=== PATIENT | female | born 1930 | race Caucasian/White ===

== ENCOUNTER 2017-08-11 15:18 | Inpatient (IN) | payer MEDICARE ==
[~2017-08-11] VITALS: Ht 165.1 cm; Wt 86.4 kg
[~2017-08-11 15:18] MED LIST: ASPI81TA23 PO; CENTTAB; COLA100C3 PO; GLIP1TAB60 PO; METF500T PO; VENTAER INH
--- NOTE | 2017-08-11 15:39 | PD ---
HPI Chief Complaint: respiratory symptoms Time Seen by Provider: 15:39 Travel History International Travel<30 days: No Contact w/Intl Traveler<30days: No History of Present Illness HPI 87 YO F with PMH of COPD, DMT2, chronic wounds presents to the ED via EMS for evaluation of shortness of breath. Gradual onset since this morning. Patient states that she was ordered to wear O2 at night but is noncompliant. She endorses chronic, nonproductive cough. She endorses low appetite since this morning. She denies fever, chills, chest pain, nausea, vomiting, dysuria. The patient is bedbound, cared for at home by her daughter. The daughter states that the patient is prescribed a rescue inhaler but does not use albuterol treatments at home. Patient's daughter uses a nebulizer and administered 2 treatments to her mom last night. Followed by Dr. Luque, no instrument calibrator. She was administered IV Solu-Medrol and albuterol treatments in route. PFSH Past Medical History Congestive Heart Failure: Yes COPD: Yes Diabetes: Yes Diminished Hearing: Yes ([place]) Hypertension: Yes Immunizations Current: Yes Past Surgical History Cholecystectomy: Yes Hysterectomy: Yes Social History Alcohol Use: No Tobacco Use: Yes (2 PPD) Substance Use: No Allergies-Medications (Allergen,Severity, Reaction): Coded Allergies: amoxicillin (Unverified Allergy, Unknown, 08/11/17) levofloxacin (Unverified Allergy, Unknown, 08/11/17) penicillin G (Unverified Allergy, Unknown, 08/11/17) Reported Meds & Prescriptions Reported Meds & Active Scripts Active Reported Donepezil 5 Mg Tab 5 Mg PO HS Plavix (Clopidogrel Bisulfate) 75 Mg Tab 75 Mg PO DAILY Ventolin Hfa 18 GM Inh (Albuterol Sulfate) 90 Mcg/Act Aer 2 Puff INH Q4-6H PRN Aspirin EC (Aspirin) 81 Mg Tabdr 81 Mg PO DAILY Glipizide ER (Glipizide) 2.5 Mg Nayeli 2.5 Mg PO BID Take with breakfast or first main meal of the day Review of Systems Except as stated in HPI: all other systems reviewed are Neg Physical Exam Narrative GENERAL: Well-nourished, well-developed white female in no acute distress. SKIN: Focused skin assessment warm/dry. HEAD: Normocephalic. EYES: No scleral icterus. No injection or drainage. NECK: Supple, trachea midline. No JVD or lymphadenopathy. CARDIOVASCULAR: Regular rate and rhythm without murmurs, gallops, or rubs. RESPIRATORY: Breath sounds equal bilaterally. Mild end expiratory wheezing in the bilateral lung weston. No accessory muscle use. GASTROINTESTINAL: Abdomen soft, non-tender, nondistended. Active bowel sounds. RECTAL EXAM: No masses or tenderness, stool is brown. Guaiac positive. MUSCULOSKELETAL: No cyanosis, or edema. Muscle wasting in the lower extremities. BACK: Nontender without obvious deformity. No CVA tenderness. Data Data Last Documented VS Vital Signs Date Time Temp Pulse Resp B/P (MAP) Pulse Ox O2 Delivery O2 Flow Rate FiO2 08/11/17 15:57 96 Nasal Cannula 3.00 08/11/17 15:43 98.0 107 21 152/67 (95) Orders Orders Complete Blood Count With Diff (08/11/17 15:54) Comprehensive Metabolic Panel (08/11/17 15:54) B-Type Natriuretic Peptide (08/11/17 15:54) Act Partial Throm Time (Ptt) (08/11/17 15:54) Prothrombin Time / Inr (Pt) (08/11/17 15:54) Urinalysis - C+S If Indicated (08/11/17 15:54) Iv Access Insert/Monitor (08/11/17 15:54) Ecg Monitoring (08/11/17 15:54) Oximetry (08/11/17 15:54) Oxygen Administration (08/11/17 15:54) Chest, Single Ap (08/11/17 15:54) Sodium Chloride 0.9% Flush (Ns Flush) (08/11/17 16:00) Albuterol-Ipratropium Neb (Duoneb Neb) (08/11/17 16:00) Lidocaine 2% Jelly (Xylocaine 2% Jelly) (08/11/17 17:30) Type And Screen (08/11/17 17:25) Red Blood Cells (Rbc) (08/11/17 17:25) Sodium Chlor 0.9% 250 Ml Inj (Ns 250 Ml (08/11/17 17:30) Furosemide Inj (Lasix Inj) (08/11/17 17:45) Blood Product Administration (08/11/17 17:36) Sodium Chlor 0.9% 250 Ml Inj (Ns 250 Ml (08/11/17 17:45) Diphenhydramine (Benadryl) (08/11/17 17:45) Acetaminophen (Tylenol) (08/11/17 17:45) Urinary Catheter Insert/Apply (08/11/17 17:47) Admit Order (Ed Use Only) (08/11/17 17:51) Consult Gastroenterology (08/11/17 ) Labs Laboratory Tests Test 08/11/17 15:56 White Blood Count 12.8 TH/MM3 Red Blood Count 4.12 MIL/MM3 Hemoglobin 6.9 GM/DL Hematocrit 25.3 % Mean Corpuscular Volume 61.5 FL Mean Corpuscular Hemoglobin 16.7 PG Mean Corpuscular Hemoglobin Concent 27.1 % Red Cell Distribution Width 22.5 % Platelet Count 287 TH/MM3 Mean Platelet Volume 8.3 FL Neutrophils (%) (Auto) 77.4 % Lymphocytes (%) (Auto) 16.3 % Monocytes (%) (Auto) 5.1 % Eosinophils (%) (Auto) 0.7 % Basophils (%) (Auto) 0.5 % Neutrophils # (Auto) 9.9 TH/MM3 Lymphocytes # (Auto) 2.1 TH/MM3 Monocytes # (Auto) 0.7 TH/MM3 Eosinophils # (Auto) 0.1 TH/MM3 Basophils # (Auto) 0.1 TH/MM3 CBC Comment AUTO DIFF Differential Comment AUTO DIFF CONFIRMED Platelet Estimate NORMAL Platelet Morphology Comment NORMAL Ovalocytes 1+ Stomatocytes 1+ Prothrombin Time 11.4 SEC Prothromb Time International Ratio 1.1 RATIO Activated Partial Thromboplast Time 23.5 SEC Blood Urea Nitrogen 20 MG/DL Creatinine 0.72 MG/DL Random Glucose 151 MG/DL Total Protein 6.9 GM/DL Albumin 2.9 GM/DL Calcium Level 8.2 MG/DL Alkaline Phosphatase 126 U/L Aspartate Amino Transf (AST/SGOT) 15 U/L Alanine Aminotransferase (ALT/SGPT) 15 U/L Total Bilirubin 0.6 MG/DL Sodium Level 144 MEQ/L Potassium Level 3.8 MEQ/L Chloride Level 107 MEQ/L Carbon Dioxide Level 30.2 MEQ/L Anion Gap 7 MEQ/L Estimat Glomerular Filtration Rate 77 ML/MIN B-Type Natriuretic Peptide 308 PG/ML MDM Medical Decision Making Medical Screen Exam Complete: Yes Emergency Medical Condition: Yes Differential Diagnosis COPD exacerbation versus CHF versus PNA versus UTI versus anemia versus metabolic derangement versus other Narrative Course 87 YO F with PMH of COPD, DMT2, chronic wounds presents to the ED via EMS for evaluation of shortness of breath. Gradual onset since this morning. She endorses chronic, nonproductive cough, no worse today. She endorses low appetite since this morning. She denies fever, chills, chest pain, nausea, vomiting, dysuria. The patient is bedbound, cared for at home by her daughter. Followed by Dr. Luque. She was administered IV Solu-Medrol and albuterol treatments in route. Vitals reviewed. O2 sats 89 through 91 on room air. 2 L O2 nasal cannula applied. O2 sats improved to 95% and above. Heart rate 107. Physical exam reveals a nontoxic-appearing white female in no acute distress. Mild index were toward wheezing in the bilateral lung weston. Abdomen soft and nontender. Stool is brown, guaiac positive. Muscle wasting of the lower extremities. IV was established. CBC: WBC 12.8 with a left shift. Hemoglobin 6.9. Hematocrit 25.3. MCV 61.5. Coags: INR 1.1 CMP: BUN 20, creatinine 0.72. Calcium 8.2. BNP 308. CXR: Ulnar edema per radiology read. UA: Unable to obtain secondary to patient's body habitus and pain level. Topical lidocaine ordered, will attempt to insert Motta catheter. 2 units PRBCs ordered, will be administered pending type and screen. Discussed the results of the workup with the patient and her family. Patient had a colonoscopy approximately 3 years ago, unknown provider. The patient is agreeable to admission. Consult placed with gastroenterology. [facility] is admitting for Dr. Luque today. I spoke with Dr. Palomino who agrees to accept the patient to the medicine service. Please see medicine notes for disposition. [facility]pt Point of Care Internal Pos. & Neg. Controls: Passed Fecal Specimen Occult Blood: Positive Amanda Madrigal Aug 11, 2017 15:39
[2017-08-11 15:43] VITALS: BP 152/67; PULSE 107; RESP 21; TEMP 98; O2SAT 93
[2017-08-11] MEDS ORDERED: PLAV75TA29 PO (15:52)
[2017-08-11] MEDS ORDERED: DONE5TAB7 PO (15:52)
[2017-08-11] MEDS ORDERED: SODIUM CHLORIDE 0.9% FLUSH 10 ML FLUSH IVF PRN (16:00)
[2017-08-11] MEDS: RESP: ALBUTEROL 2.5 MG/IPRATROPIUM 0.5 MG NEB (SCH) INH (16:07)
--- NOTE | 2017-08-11 16:14 | RADRPT ---
EXAM DATE/TIME: 08/11/2017 16:08 [facility] COMPARISON: CHEST SINGLE AP, July 10, 2014, 14:00. INDICATIONS : Shortness of breath for 3 days. MEDICAL HISTORY : Chronic obstructive pulmonary disease. SURGICAL HISTORY : None. ENCOUNTER: Initial ACUITY: 3 days PAIN SCORE: 0/10 LOCATION: Bilateral chest FINDINGS: A single view of the chest demonstrates increased prominence of the interstitial markings bilaterally to just above edema. There is blunting of the costophrenic angle suggestive of small effusions. The heart size is enlarged. The bony structures are grossly intact and stable.. CONCLUSION: Findings suggestive of pulmonary edema. Mor Poole MD on August 11, 2017 at 16:12 Board Certified Radiologist. This report was verified electronically.
[2017-08-11 17:05] LABS: AUTOMATED NEUTROPHIL # 9.9 TH/MM3 (1.8-7.7); BASOPHIL # 0.1 TH/MM3 (0-0.2); BASOPHIL % 0.5 % (0.0-2.0); EOSINOPHIL # 0.1 TH/MM3 (0-0.4); EOSINOPHIL % 0.7 % (0.0-4.0); HEMATOCRIT 25.3 % (35.0-46.0); LYMPH % 16.3 % (9.0-44.0); LYMPHOCYTE # 2.1 TH/MM3 (1.0-4.8); MEAN CELL VOLUME 61.5 FL (80.0-100.0); MEAN CORPUSCULAR HEMOGLOBIN 16.7 PG (27.0-34.0); MONO % 5.1 % (0.0-8.0); NEUT % 77.4 % (16.0-70.0); PLATELET COUNT 287 TH/MM3 (150-450); RED BLOOD COUNT 4.12 MIL/MM3 (4.00-5.30); RED CELL DISTRIBUTION WIDTH 22.5 % (11.6-17.2); WHITE BLOOD COUNT 12.8 TH/MM3 (4.0-11.0)
[2017-08-11 17:06] LABS: HEMO FLAGS AUTO DIFF; MEAN CORPUSCULAR HGB CONC 27.1 % (32.0-36.0)
[2017-08-11 17:07] LABS: APTT (PATIENT) 23.5 SEC (24.3-30.1); INTERNATIONAL NORMALIZED RATIO 1.1 RATIO; PROTHROMBIN TIME - PATIENT 11.4 SEC (9.8-11.6)
[2017-08-11 17:19] LABS: ALT (GPT) 15 U/L (10-53); ANION GAP 7 MEQ/L (5-15); AST (GOT) 15 U/L (15-37); BICARBONATE 30.2 MEQ/L (21.0-32.0); BLOOD UREA NITROGEN 20 MG/DL (7-18); CHLORIDE 107 MEQ/L (98-107); GLOMERULAR FILTRATION RATE 77 ML/MIN (>89); POTASSIUM 3.8 MEQ/L (3.5-5.1); SODIUM (NA) 144 MEQ/L (136-145)
[2017-08-11 17:22] LABS: ALKALINE PHOSPHATASE 126 U/L (45-117); TOTAL BILIRUBIN ADULT 0.6 MG/DL (0.2-1.0)
[2017-08-11] MEDS ORDERED: SODIUM CHLOR 0.9% 250 ML INJ 250 ML IV ONE ×2 (17:30→17:45)
[2017-08-11] MEDS ORDERED: LIDOCAINE 2% JELLY 30 ML TUBE TOPICAL ONE (17:30)
[2017-08-11 17:40] LABS: OVALOCYTES 1+ (NORMAL); PLATELET ESTIMATE SMEAR NORMAL (NORMAL); PLATELET MORPHOLOGY NORMAL (NORMAL); SCAN/DIFF AUTO DIFF CONFIRMED; STOMATOCYTES 1+ (NORMAL)
[2017-08-11] MEDS ORDERED: diphenhydrAMINE HCL 25 MG CAP PO ONE (17:45)
[2017-08-11] MEDS ORDERED: FUROSEMIDE 40 MG/4 ML VIAL IV PUSH ONE (17:45)
[2017-08-11] MEDS ORDERED: ACETAMINOPHEN 325 MG TAB PO ONE (17:45)
[2017-08-11] MEDS ORDERED: MAGNESIUM HYDROXIDE SUSP 30 ML CUP PO PRN (19:15)
[2017-08-11] MEDS ORDERED: GLUCAGON 1 MG/ML VIAL OTHER PRN (19:15)
[2017-08-11] MEDS ORDERED: RESP: ALBUTEROL 2.5 MG/IPRATROPIUM 0.5 MG NEB (PRN) NEB (19:15)
[2017-08-11] MEDS ORDERED: BISACODYL 10 MG SUPP RECTAL PRN (19:15)
[2017-08-11] MEDS ORDERED: DEXTROSE 50% IN WATER 50 ML VIAL(D50) IV PUSH PRN (19:15)
[2017-08-11] MEDS ORDERED: SENNOSIDES 8.6 MG TAB PO PRN (19:15)
[2017-08-11] MEDS ORDERED: NALOXONE HCL 0.4 MG/ML AMP IV PUSH PRN (19:15)
[2017-08-11] MEDS ORDERED: LACTULOSE SYRUP 20 GM/30 ML CUP PO PRN (19:15)
[2017-08-11] MEDS ORDERED: ONDANSETRON HCL 4 MG/2 ML VIAL IVP PRN (19:15)
[2017-08-11] MEDS ORDERED: ACETAMINOPHEN 325 MG TAB PO PRN (19:15)
[2017-08-11] MEDS ORDERED: SODIUM CHLORIDE 0.9% FLUSH 10 ML FLUSH IV FLUSH PRN (19:15)
[2017-08-11 19:31] VITALS: O2SAT 94
[2017-08-11 20:06] VITALS: BP 145/89; PULSE 90; RESP 20; O2SAT 94; O2SAT 95
[2017-08-11 20:50] VITALS: BP 161/72; PULSE 106; RESP 22; TEMP 96.1; O2SAT 94
[2017-08-11] MEDS: DOCUSATE SODIUM 50 MG/SENNA 8.6 MG TAB PO SCH (21:00)
--- NOTE | 2017-08-11 21:57 | HHI.HP ---
HPI [facility] Dwight Luque MD Admission Diagnosis GI bleed, anemia, hypoxia Diagnoses: Travel History International Travel<30 Days: No Contact w/Intl Traveler <30 Da: No Traveled to Known Affected Are: No History of Present Illness 87-year-old female with a past medical history significant for COPD (not on home oxygen), h/o CVA, type 2 diabetes mellitus, dementia and chronic wounds for which she sees wound care is brought to the emergency department by EMS for shortness of breath. The patient reports her shortness of breath started this morning and has been gradually increasing. She has a cough which is unchanged from her chronic cough, nonproductive. She denies subjective fever/chills. Denies chest pain, nausea/vomiting. Patient was found to be severely anemic with an H&H of 6.9/25.3. Chest x-ray showed pulmonary edema. Afebrile, tachycardic with a pulse of 107, respiratory rate 22, blood pressure 161/72 oxygen saturation 94% on 3 L nasal cannula. Review of Systems Denies fever or chills Denies blurry vision, otorrhea, rhinorrhea Denies sore throat, positive chronic non-productive cough No chest pain, palpitations, positive shortness of breath No abdominal pain Denies constipation/diarrhea/nausea/vomiting Denies muscle pain/weakness No rashes Past Family Social History Past Medical History COPD, not on home oxygen Type 2 diabetes mellitus Pressure ulcer left heel History of CVA Dementia Past Surgical History Bilateral foot surgery Bilateral hip replacement Cholecystectomy Reported Medications Reported Meds & Active Scripts Active Reported Donepezil 5 Mg Tab 5 Mg PO HS Plavix (Clopidogrel Bisulfate) 75 Mg Tab 75 Mg PO DAILY Ventolin Hfa 18 GM Inh (Albuterol Sulfate) 90 Mcg/Act Aer 2 Puff INH Q4-6H PRN Aspirin EC (Aspirin) 81 Mg Tabdr 81 Mg PO DAILY Glipizide ER (Glipizide) 2.5 Mg Nayeli 2.5 Mg PO BID Take with breakfast or first main meal of the day Allergies: Coded Allergies: amoxicillin (Unverified Allergy, Unknown, 12/9/17) levofloxacin (Unverified Allergy, Unknown, 08/11/17) penicillin G (Unverified Allergy, Unknown, 08/11/17) Family History Mother with diabetes mellitus Social History Quit smoking 1-1/2 years ago, cannot tell me how long she smoked. Denies alcohol, illicit drugs. Physical Exam Vital Signs Vital Signs Date Time Temp Pulse Resp B/P (MAP) Pulse Ox O2 Delivery O2 Flow Rate FiO2 08/11/17 20:50 96.1 106 22 161/72 (101) 94 08/11/17 20:30 08/11/17 20:06 90 20 145/89 (107) 95 Nasal Cannula 3.00 08/11/17 19:31 94 Nasal Cannula 3.00 08/11/17 15:57 96 Nasal Cannula 3.00 08/11/17 15:43 98.0 107 21 152/67 (95) 93 Nasal Cannula 3.00 Physical Exam GENERAL: female lying in bed SKIN: Pale. No rashes, ecchymoses or lesions. Cool and dry. Pressure ulcer left heel with dressing intact. HEAD: Atraumatic. Normocephalic. No temporal or scalp tenderness. EYES: Pupils equal round and reactive. Extraocular motions intact. No scleral icterus. No injection or drainage. ENT: Nose without bleeding, purulent drainage or septal hematoma. Throat without erythema, tonsillar hypertrophy or exudate. Uvula midline. Airway patent. NECK: Trachea midline. No JVD or lymphadenopathy. Supple, nontender, no meningeal signs. CARDIOVASCULAR: Regular rate and rhythm without murmurs, gallops, or rubs. RESPIRATORY: Bilateral expiratory wheezes throughout. No rales/rhonchi. GASTROINTESTINAL: Abdomen soft, non-tender, nondistended. No hepato-splenomegaly , or palpable masses. No guarding. MUSCULOSKELETAL: Extremities without clubbing, cyanosis, or edema. No joint tenderness, effusion, or edema noted. No calf tenderness. NEUROLOGICAL: Awake and alert. Cranial nerves II through XII intact. Bilateral lower extremity residual weakness secondary to CVA. Normal speech. Alert and oriented to person, place. Thinks it is 2006. Laboratory Laboratory Tests Test 08/11/17 15:56 White Blood Count 12.8 Red Blood Count 4.12 Hemoglobin 6.9 Hematocrit 25.3 Mean Corpuscular Volume 61.5 Mean Corpuscular Hemoglobin 16.7 Mean Corpuscular Hemoglobin Concent 27.1 Red Cell Distribution Width 22.5 Platelet Count 287 Mean Platelet Volume 8.3 Neutrophils (%) (Auto) 77.4 Lymphocytes (%) (Auto) 16.3 Monocytes (%) (Auto) 5.1 Eosinophils (%) (Auto) 0.7 Basophils (%) (Auto) 0.5 Neutrophils # (Auto) 9.9 Lymphocytes # (Auto) 2.1 Monocytes # (Auto) 0.7 Eosinophils # (Auto) 0.1 Basophils # (Auto) 0.1 CBC Comment AUTO DIFF Differential Comment AUTO DIFF CONFIRMED Platelet Estimate NORMAL Platelet Morphology Comment NORMAL Ovalocytes 1+ Stomatocytes 1+ Prothrombin Time 11.4 Prothromb Time International Ratio 1.1 Activated Partial Thromboplast Time 23.5 Blood Urea Nitrogen 20 Creatinine 0.72 Random Glucose 151 Total Protein 6.9 Albumin 2.9 Calcium Level 8.2 Alkaline Phosphatase 126 Aspartate Amino Transf (AST/SGOT) 15 Alanine Aminotransferase (ALT/SGPT) 15 Total Bilirubin 0.6 Sodium Level 144 Potassium Level 3.8 Chloride Level 107 Carbon Dioxide Level 30.2 Anion Gap 7 Estimat Glomerular Filtration Rate 77 B-Type Natriuretic Peptide 308 Result Diagram: 08/11/17 1556 08/11/17 155 Caprini VTE Risk Assessment Caprini VTE Risk Assessment: Mod/High Risk (score >= 2) Caprini Risk Assessment Model Point Value = 1 Point Value = 2 Point Value = 3 Point Value = 5 Age 41-60 Minor surgery BMI > 25 kg/m2 Swollen legs Varicose veins or History of unexplained or recurrent spontaneous Oral contraceptives or hormone replacement Sepsis (< 1 month) Serious lung disease, including pneumonia (< 1 month) Abnormal pulmonary function Acute myocardial infarction Congestive heart failure (< 1 month) History of inflammatory bowel disease Medical patient at bed rest Age 61-74 Arthroscopic surgery Major open surgery (> 45 min) Laparoscopic surgery (> 45 min) Malignancy Confined to bed (> 72 hours) Immobilizing plaster cast Central venous access Age >= 75 History of VTE Family history of VTE Factor V Leiden Prothrombin [id number] Lupus anticoagulant Anticardiolipin antibodies Elevated serum homocysteine Heparin-induced thrombocytopenia Other congenital or acquired thrombophilia Stroke (< 1 month) Elective arthroplasty Hip, pelvis, or leg fracture Acute spinal cord injury (< 1 month) Prophylaxis Regimen Total Risk Factor Score Risk Level Prophylaxis Regimen 0-1 Low Early ambulation 2 Moderate Order ONE of the following: *Sequential Compression Device (SCD) *Heparin 5000 units SQ BID 3-4 Higher Order ONE of the following medications: *Heparin 5000 units SQ TID *Enoxaparin/Lovenox 40 mg SQ daily (WT < 150 kg, CrCl > 30 mL/min) *Enoxaparin/Lovenox 30 mg SQ daily (WT < 150 kg, CrCl > 10-29 mL/min) *Enoxaparin/Lovenox 30 mg SQ BID (WT < 150 kg, CrCl > 30 mL/min) AND/OR *Sequential Compression Device (SCD) 5 or more Highest Order ONE of the following medications: *Heparin 5000 units SQ TID (Preferred with Epidurals) *Enoxaparin/Lovenox 40 mg SQ daily (WT < 150 kg, CrCl > 30 mL/min) *Enoxaparin/Lovenox 30 mg SQ daily (WT < 150 kg, CrCl > 10-29 mL/min) *Enoxaparin/Lovenox 30 mg SQ BID (WT < 150 kg, CrCl > 30 mL/min) AND *Sequential Compression Device (SCD) Assessment and Plan Assessment and Plan Assessment/plan: 1. Severe, symptomatic anemia/possible GI bleed H&H 6.9/25.3 Hemoccult-positive in the ED Transfuse 2 units PRBCs Gastroenterology consulted, appreciate assistance IV Protonix Follow CBC 2. COPD exacerbation/pulmonary edema Patient with new oxygen requirement and bilateral wheezes on exam Chest x-ray shows pulmonary edema, images reviewed by me Continue IV Lasix IV steroids Duo nebs 3. History of CVA Holding home aspirin/Plavix 4. Type 2 diabetes mellitus Holding home glipizide SSI Monitor blood sugars 5. Chronic pressure ulcer Patient sees wound care as an outpatient although her compliance with appointments as intermittent wound care consulted, appreciate assistance 6. Dementia Continue home Aricept FEN Regular diet Electrolytes: Monitor and replete when necessary Holding pharmacologic anticoagulation out of concern for GI bleed Case discussed with the ER physician at length Physician Certification 2 Midnight Certification Type: Admission for Inpatient Services Order for Inpatient Services The services are ordered in accordance with Medicare regulations or non- Medicare payer requirements, as applicable. In the case of services not specified as inpatient-only, they are appropriately provided as inpatient services in accordance with the 2-midnight benchmark. Estimated LOS (days): 2 2 days is the estimated time the patient will need to remain in the hospital, assuming treatment plan goals are met and no additional complications. Post-Hospital Plan: Not yet determined Hannah Baum MD Aug 11, 2017 21:56
[2017-08-11] MEDS: INSULIN ASPART SUPPLEMENTAL SCALE SQ SCH (23:34)
[2017-08-11] MEDS: PANTOPRAZOLE SODIUM 40 MG VIAL IV PUSH SCH (23:35)
[2017-08-12] VITALS (9 sets, daily range): BP systolic 115–174; BP diastolic 57–93; PULSE 85–96; RESP 17–24; TEMP 96.7–98.1; O2SAT 94–97
[2017-08-12] MEDS: SODIUM CHLORIDE 0.9% FLUSH 10 ML FLUSH IV FLUSH SCH ×3 (01:20→19:39)
[2017-08-12] MEDS: DONEPEZIL HCL 5 MG TAB PO SCH ×2 (01:20→19:38)
[2017-08-12] MEDS ORDERED: AZITHROMYCIN 250 MG TAB PO ONE (08:30)
[2017-08-12] MEDS ORDERED: RESP: ALBUTEROL 2.5 MG/3 ML NEB (PRN) NEB (08:30)
[2017-08-12] MEDS: DOCUSATE SODIUM 50 MG/SENNA 8.6 MG TAB PO SCH ×2 (08:41→19:38)
[2017-08-12] MEDS: methylPREDNISolone SOD SUCC 40 MG/1 ML VIAL IV PUSH SCH ×2 (08:41→19:38)
[2017-08-12] MEDS: FUROSEMIDE 20 MG/2 ML VIAL IV PUSH SCH ×2 (08:41→17:37)
[2017-08-12] MEDS: INSULIN ASPART SUPPLEMENTAL SCALE SQ SCH ×4 (08:42→19:38)
[2017-08-12] MEDS ORDERED: RESP: ALBUTEROL 2.5 MG/IPRATROPIUM 0.5 MG NEB (PRN) NEB (08:45)
--- NOTE | 2017-08-12 11:42 | HHI.PR ---
Subjective Remarks Follow-up anemia and pulmonary edema. Patient denies bleeding and shortness of breath. Per family, she is a DO NOT INTUBATE. Discussed with RN Objective Vitals Vital Signs Date Time Temp Pulse Resp B/P (MAP) Pulse Ox O2 Delivery O2 Flow Rate FiO2 08/12/17 08:00 97.2 85 18 141/85 (103) 97 08/12/17 04:21 97.9 87 20 143/74 97 08/12/17 04:03 96.7 89 20 169/73 96 08/12/17 01:12 97.0 95 20 128/64 96 08/12/17 00:00 97.2 96 24 115/57 (76) 94 08/11/17 20:50 96.1 106 22 161/72 (101) 94 08/11/17 20:30 08/11/17 20:06 90 20 145/89 (107) 95 Nasal Cannula 3.00 08/11/17 19:31 94 Nasal Cannula 3.00 08/11/17 15:57 96 Nasal Cannula 3.00 08/11/17 15:43 98.0 107 21 152/67 (95) 93 Nasal Cannula 3.00 I/O 08/11/17 08/11/17 08/11/17 08/12/17 08/12/17 08/12/17 07:00 15:00 23:00 07:00 15:00 23:00 Intake Total 920 ml Balance 920 ml Intake Oral 480 ml Packed Cells 400 ml Blood Product IV Normal Saline Flush 40 ml # Voids 2 # Bowel Movements 0 Result Diagram: 08/11/17 1556 08/11/17 1556 Imaging Last Impressions Chest X-Ray 08/11/17 1554 Signed Impressions: Service Date/Time: Friday, August 11, 2017 16:08 - CONCLUSION: Findings suggestive of pulmonary edema. Mor Poole MD Objective Remarks GENERAL: female lying in bed SKIN: Pale. No rashes, ecchymoses or lesions. Cool and dry. Pressure ulcer left heel with dressing intact. CARDIOVASCULAR: Regular rate and rhythm without murmurs, gallops, or rubs. RESPIRATORY: Decreased breath sounds. No rales/rhonchi. GASTROINTESTINAL: Abdomen soft, non-tender, nondistended. No guarding. MUSCULOSKELETAL: Extremities without clubbing, cyanosis, or edema. No joint tenderness, effusion, or edema noted. No calf tenderness. NEUROLOGICAL: Awake and alert. Cranial nerves II through XII intact. Bilateral lower extremity residual weakness secondary to CVA. Normal speech. A/P Problem List: (1) Anemia ICD Code: D64.9 - Anemia, unspecified Assessment and Plan 1. Severe, symptomatic anemia secondary to acute blood loss from GI bleed Hemoccult-positive in the ED Transfuse 2 units PRBCs Gastroenterology consulted, appreciate assistance IV Protonix Follow CBC 2. COPD exacerbation/pulmonary edema Patient with new oxygen requirement and bilateral wheezes on exam improved today Chest x-ray shows pulmonary edema, images reviewed by me Continue IV Lasix check echocardiogram IV steroids consider switching to by mouth in the morning. Start Zithromax Duo nebs 3. History of CVA Holding home aspirin/Plavix 4. Type 2 diabetes mellitus Holding home glipizide SSI Monitor blood sugars 5. Chronic pressure ulcer Patient sees wound care as an outpatient although her compliance with appointments as intermittent wound care consulted, appreciate assistance 6. Dementia Continue home Aricept FEN Regular diet Electrolytes: Monitor and replete when necessary Holding pharmacologic anticoagulation out of concern for GI bleed Discharge Planning Not ready for discharge for endoscopy tomorrow Virgilio Fonseca MD Aug 12, 2017 11:42
--- NOTE | 2017-08-12 12:47 | PD.CONS ---
HPI History of Present Illness This is a 87 year old female who presented to the ED by EMS with c/o shortness of breath. Past medical history significant for COPD, CVA, type 2 diabetes, dementia, and chronic wounds. In the ED patient was noted to be anemic, HH 6.9/ 25.3 (08/11) with Hemoccult positive stools. She is s/p 2 transfusions of PRBC on 08/12. Patient reports she had a colonoscopy "a long time ago" and she is unaware of the results. Denies abdominal pain. Denies nausea or vomiting. (Marj Bolton) PFSH Past Medical History COPD Type 2 diabetes mellitus Pressure ulcer left heel History of CVA Dementia Past Surgical History Bilateral foot surgery Bilateral hip replacement Cholecystectomy (Marj Bolton) Coded Allergies: amoxicillin (Unverified Allergy, Unknown, 08/11/17) levofloxacin (Unverified Allergy, Unknown, 08/11/17) penicillin G (Unverified Allergy, Unknown, 08/11/17) Medications Current Medications Medications (Trade) Dose Ordered Sig/Yue Route PRN Reason Start Time Stop Time Status Last Admin Dose Admin Sodium Chloride (NS Flush) 2 ml UNSCH PRN IV FLUSH FLUSH AFTER USING IV ACCESS 08/11/17 19:15 Sodium Chloride (NS Flush) 2 ml BID IV FLUSH 08/11/17 21:00 08/12/17 08:42 Acetaminophen (Tylenol) 650 mg Q4H PRN PO TEMP > 100.4 08/11/17 19:15 Ondansetron HCl (Zofran Inj) 4 mg Q6H PRN IVP NAUSEA OR VOMITING 08/11/17 19:15 Naloxone HCl (Narcan Inj) 0.4 mg UNSCH PRN IV PUSH SEE LABEL COMMENTS 08/11/17 19:15 Senna/Docusate Sodium (Susan-Colace) 1 tab BID PO 08/11/17 21:00 08/12/17 08:41 Magnesium Hydroxide (Milk Of Magnesia Liq) 30 ml Q12H PRN PO Mild constipation 08/11/17 19:15 Sennosides (Senokot) 17.2 mg Q12H PRN PO Moderate constipation 08/11/17 19:15 Bisacodyl (Dulcolax Supp) 10 mg DAILY PRN RECTAL SEVERE CONSITIPATION 08/11/17 19:15 Lactulose (Lactulose Liq) 30 ml DAILY PRN PO SEVERE CONSITIPATION 08/11/17 19:15 Donepezil HCl (Aricept) 5 mg HS PO 08/11/17 21:00 08/12/17 01:20 Dextrose (D50w (Vial) Inj) 50 ml UNSCH PRN IV PUSH HYPOGLYCEMIA-SEE COMMENTS 08/11/17 19:15 Glucagon (Glucagon Inj) 1 mg UNSCH PRN OTHER HYPOGLYCEMIA-SEE COMMENTS 08/11/17 19:15 Insulin Aspart (NovoLOG SUPPLEMENTAL SCALE) 1 ACHS SLIDING SCALE SQ 08/11/17 21:00 08/12/17 08:42 Methylprednisolone Sodium Succinate (SoluMEDROL INJ) 40 mg Q12HR IV PUSH 08/12/17 09:00 08/12/17 08:41 Furosemide (Lasix Inj) 20 mg BID@09,18 IV PUSH 08/12/17 09:00 08/12/17 08:41 Pantoprazole Sodium (Protonix Inj) 40 mg Q24H IV PUSH 08/11/17 22:00 08/11/17 23:35 Albuterol/ Ipratropium (Duoneb Neb) 1 ampule QID NEB PRN NEB SOB/Wheezing 08/12/17 08:45 Albuterol Sulfate (Albuterol Neb) 2.5 mg Q4HR NEB PRN NEB sob 08/12/17 08:30 Azithromycin (Zithromax) 250 mg DAILY PO 08/13/17 09:00 08/17/17 08:59 Family History Mother, diabetes mellitus Social History Tobacco, quit smoking 1-1/2 years ago ETOH, denies Illicit Drugs, denies (Marj Bolton) Review of Systems Constitutional: COMPLAINS OF: Fatigue, DENIES: Diaphoretic episodes, Fever, Weight gain, Weight loss, Chills, Dizziness, Change in appetite, Night Sweats Endocrine: DENIES: Polydipsia, Polyuria Eyes: DENIES: Blurred vision, Photosensitivity, Double Vision Ears, nose, mouth, throat: DENIES: Hearing loss, Vertigo, Oral lesions, Throat pain, Hoarseness Respiratory: COMPLAINS OF: Shortness of breath, DENIES: Cough, Wheezing, Hemoptysis, Sputum production Cardiovascular: DENIES: Chest pain, Palpitations, Syncope, Lower Extremity Edema, Orthopnea, Claudication Gastrointestinal: DENIES: Abdominal pain, Black stools, Bloody stools, Constipation, Diarrhea, Nausea, Vomiting, Difficulty Swallowing, Anorexia, Odynophagia, Swelling of Abdomen, Heartburn, Hematemesis Genitourinary: DENIES: Urinary frequency, Urinary incontinence, Urgency, Hematuria, Dysuria, Nocturia Musculoskeletal: DENIES: Joint pain, Muscle aches, Stiffness, Joint Swelling, Back pain, Neck pain Integumentary: DENIES: Abnormal pigmentation, Nail changes, Pruritus, Rash, Jaundice Hematologic/lymphatic: DENIES: Bruising, Lymphadenopathy Immunologic/allergic: DENIES: Eczema, Urticaria Neurologic: DENIES: Abnormal gait, Headache, Localized weakness, Paresthesias Psychiatric: DENIES: Anxiety, Confusion, Mood changes, Depression, Agitation, Suicidal Ideation (Marj Bolton) GI Exam Vitals I&O Vital Signs Date Time Temp Pulse Resp B/P (MAP) Pulse Ox O2 Delivery O2 Flow Rate FiO2 08/12/17 08:00 97.2 85 18 141/85 (103) 97 08/12/17 04:21 97.9 87 20 143/74 97 08/12/17 04:03 96.7 89 20 169/73 96 08/12/17 01:12 97.0 95 20 128/64 96 08/12/17 00:00 97.2 96 24 115/57 (76) 94 08/11/17 20:50 96.1 106 22 161/72 (101) 94 08/11/17 20:30 08/11/17 20:06 90 20 145/89 (107) 95 Nasal Cannula 3.00 08/11/17 19:31 94 Nasal Cannula 3.00 08/11/17 15:57 96 Nasal Cannula 3.00 08/11/17 15:43 98.0 107 21 152/67 (95) 93 Nasal Cannula 3.00 I/O 08/11/17 08/11/17 08/11/17 08/12/17 08/12/17 08/12/17 07:00 15:00 23:00 07:00 15:00 23:00 Intake Total 920 ml 400 ml Balance 920 ml 400 ml Intake Oral 480 ml Packed Cells 400 ml 400 ml Blood Product IV Normal Saline Flush 40 ml # Voids 2 # Bowel Movements 0 Imaging Last Impressions Chest X-Ray 08/11/17 1554 Signed Impressions: Service Date/Time: Friday, August 11, 2017 16:08 - CONCLUSION: Findings suggestive of pulmonary edema. Mor Poole MD Laboratory Test 08/11/17 15:56 White Blood Count 12.8 TH/MM3 Red Blood Count 4.12 MIL/MM3 Hemoglobin 6.9 GM/DL Hematocrit 25.3 % Mean Corpuscular Volume 61.5 FL Mean Corpuscular Hemoglobin 16.7 PG Mean Corpuscular Hemoglobin Concent 27.1 % Red Cell Distribution Width 22.5 % Platelet Count 287 TH/MM3 Mean Platelet Volume 8.3 FL Neutrophils (%) (Auto) 77.4 % Lymphocytes (%) (Auto) 16.3 % Monocytes (%) (Auto) 5.1 % Eosinophils (%) (Auto) 0.7 % Basophils (%) (Auto) 0.5 % Neutrophils # (Auto) 9.9 TH/MM3 Lymphocytes # (Auto) 2.1 TH/MM3 Monocytes # (Auto) 0.7 TH/MM3 Eosinophils # (Auto) 0.1 TH/MM3 Basophils # (Auto) 0.1 TH/MM3 CBC Comment AUTO DIFF Differential Comment AUTO DIFF CONFIRMED Platelet Estimate NORMAL Platelet Morphology Comment NORMAL Ovalocytes 1+ Stomatocytes 1+ Prothrombin Time 11.4 SEC Prothromb Time International Ratio 1.1 RATIO Activated Partial Thromboplast Time 23.5 SEC Blood Urea Nitrogen 20 MG/DL Creatinine 0.72 MG/DL Random Glucose 151 MG/DL Total Protein 6.9 GM/DL Albumin 2.9 GM/DL Calcium Level 8.2 MG/DL Alkaline Phosphatase 126 U/L Aspartate Amino Transf (AST/SGOT) 15 U/L Alanine Aminotransferase (ALT/SGPT) 15 U/L Total Bilirubin 0.6 MG/DL Sodium Level 144 MEQ/L Potassium Level 3.8 MEQ/L Chloride Level 107 MEQ/L Carbon Dioxide Level 30.2 MEQ/L Anion Gap 7 MEQ/L Estimat Glomerular Filtration Rate 77 ML/MIN B-Type Natriuretic Peptide 308 PG/ML Date/Time Source Procedure Growth Status 08/12/17 11:03 Stool Stool Stool Occult Blood (BOOM) Pending Received Physical Examination HEENT: Normocephalic; atraumatic; no jaundice. NECK: Neck is supple CHEST: Wheezing. CARDIAC: RRR with no murmur gallop or rubs. ABDOMEN: Soft, nondistended, low abdominal area TTP; no hepatosplenomegaly; bowel sounds are present in all four quadrants. EXTREMITIES: No clubbing, cyanosis, or edema. SKIN: L heel pressure ulcer with dressing in place PHLEBOTOMIST ASSOCIATE: Awake, alert and oriented to person and place. (Marj Bolton) Assessment and Plan Plan ASSESSMENT: - Anemia, with Hemoccult positive stools. HH 6.9/25.3 on admission. No recent labs available today to review. She is s/p 2 units of PRBC on 08/12. Last colonoscopy was reported to be "a long time ago," results are unknown. Denies nausea, vomiting, or diarrhea. Denies blood in stool. Lower abdominal are with TTP. - COPD, CXR 08/11/17--Findings suggestive of pulmonary edema - History of CVA. Aspirin and Plavix on hold - Type 2 diabetes, dementia; per attending PLAN: - Hold Aspirin and Plavix - Colonoscopy on Sunday - Obtain consents - Clear liquid diet today - NPO at [facility] - Bowel prep today - Monitor HH, transfuse as needed - Supportive care - Further recommendations to follow based on results of above Patient seen and examined by Dr. Mattson and myself and this note is written on his behalf. (Marj Bolton) Plan Patient was seen and examined, agree with above note except Will add upper endoscopy to the patient because of the heme-positive stool and need to rule out peptic ulcer disease or gastric ulcer causing the anemia. (Nelda Mattson MD) Marj Bolton Aug 12, 2017 12:47 Nelda Mattson MD Aug 12, 2017 14:22
[2017-08-12 12:55] LABS: AUTOMATED NEUTROPHIL # 12.8 TH/MM3 (1.8-7.7); HEMATOCRIT 33.5 % (35.0-46.0); LYMPH % 3.7 % (9.0-44.0); LYMPHOCYTE # 0.5 TH/MM3 (1.0-4.8); MEAN CELL VOLUME 65.3 FL (80.0-100.0); MEAN CORPUSCULAR HEMOGLOBIN 19.2 PG (27.0-34.0); MONO % 2.3 % (0.0-8.0); PLATELET COUNT 230 TH/MM3 (150-450); RED BLOOD COUNT 5.13 MIL/MM3 (4.00-5.30); RED CELL DISTRIBUTION WIDTH 27.8 % (11.6-17.2); WHITE BLOOD COUNT 13.6 TH/MM3 (4.0-11.0)
[2017-08-12 12:57] LABS: HEMO FLAGS AUTO DIFF; MEAN CORPUSCULAR HGB CONC 29.4 % (32.0-36.0)
[2017-08-12 13:14] LABS: BICARBONATE 31.5 MEQ/L (21.0-32.0); POTASSIUM 4.1 MEQ/L (3.5-5.1)
[2017-08-12 13:38] LABS: ACANTHOCYTES OCC (NORMAL); OVALOCYTES 1+ (NORMAL); PLATELET ESTIMATE SMEAR NORMAL (NORMAL); PLATELET MORPHOLOGY NORMAL (NORMAL); SCAN/DIFF AUTO DIFF CONFIRMED
[2017-08-12] MEDS ORDERED: ENALAPRILAT 1.25 MG/ML VIAL IV PUSH PRN (15:45)
[2017-08-12] MEDS ORDERED: PEG (High)/E-LYTE SOLN 4000 ML BTL PO ONE (16:00)
[2017-08-12] MEDS: PANTOPRAZOLE SODIUM 40 MG VIAL IV PUSH SCH (19:38)
[2017-08-13] VITALS: BP 158/74; PULSE 87; RESP 20; TEMP 97.1; O2SAT 97
[2017-08-13] MEDS ORDERED: CHLORHEXIDINE GLUCONATE 2 % 1 PACK (2 CLOTHS) TOPICAL PRN (00:15)
[2017-08-13] MEDS ORDERED: LACTATED RINGER'S 1000 ML IV PRN (00:15)
[2017-08-13] MEDS ORDERED: POVIDONE IODINE 5% (ANTISEPSIS KIT) 4 APPLICATIONS EACH NARE PRN (00:15)
[2017-08-13] MEDS ORDERED: SODIUM CHLORID 0.9% 500 ML IV PRN (00:15)
[2017-08-13] MEDS ORDERED: METOPROLOL TARTRATE 25 MG TAB PO PRN (00:15)
[2017-08-13] MEDS ORDERED: INSULIN HUMAN REGULAR 1,000 UNITS/10 ML VIAL SQ PRN (00:15)
[2017-08-13] MEDS: methylPREDNISolone SOD SUCC 40 MG/1 ML VIAL IV PUSH SCH ×2 (07:30→22:00)
[2017-08-13] MEDS: DOCUSATE SODIUM 50 MG/SENNA 8.6 MG TAB PO SCH ×2 (07:30→22:01)
[2017-08-13] MEDS: FUROSEMIDE 20 MG/2 ML VIAL IV PUSH SCH ×2 (07:30→17:31)
[2017-08-13] MEDS: SODIUM CHLORIDE 0.9% FLUSH 10 ML FLUSH IV FLUSH SCH ×2 (07:31→22:00)
[2017-08-13] MEDS: INSULIN ASPART SUPPLEMENTAL SCALE SQ SCH ×4 (07:31→22:00)
[2017-08-13] MEDS: AZITHROMYCIN 250 MG TAB PO SCH (07:31)
[2017-08-13 08:00] VITALS: BP 181/61; PULSE 81; RESP 20; TEMP 97.7; O2SAT 96
[2017-08-13 08:00] LABS: AUTOMATED NEUTROPHIL # 8.7 TH/MM3 (1.8-7.7); BASOPHIL % 0.4 % (0.0-2.0); EOSINOPHIL % 0.1 % (0.0-4.0); HEMATOCRIT 33.1 % (35.0-46.0); LYMPHOCYTE # 1.3 TH/MM3 (1.0-4.8); MEAN CORPUSCULAR HEMOGLOBIN 19.8 PG (27.0-34.0); MONO % 5.2 % (0.0-8.0); NEUT % 82.3 % (16.0-70.0); PLATELET COUNT 207 TH/MM3 (150-450); RED BLOOD COUNT 5.02 MIL/MM3 (4.00-5.30); RED CELL DISTRIBUTION WIDTH 27.7 % (11.6-17.2); WHITE BLOOD COUNT 10.5 TH/MM3 (4.0-11.0)
[2017-08-13 08:04] LABS: HEMO FLAGS AUTO DIFF; MEAN CORPUSCULAR HGB CONC 29.9 % (32.0-36.0)
[2017-08-13 08:19] LABS: MAGNESIUM 1.7 MG/DL (1.5-2.5); POTASSIUM 3.5 MEQ/L (3.5-5.1)
[2017-08-13 08:46] VITALS: O2SAT 90; O2SAT 94
[2017-08-13 09:00] LABS: OVALOCYTES 1+ (NORMAL); PLATELET ESTIMATE SMEAR NORMAL (NORMAL); PLATELET MORPHOLOGY NORMAL (NORMAL); SCAN/DIFF AUTO DIFF CONFIRMED
--- NOTE | 2017-08-13 09:53 | HHI.PR ---
Subjective Remarks Follow up of patient with Anemia and Pulmonary Edema, she is DNI. Status post EGD with biopsy followed by Colonoscopy with Snare polypectomy, found Hiatal hernia, Gastritis, Diverticulosis. new Colonoscopy in 3 months. Discussed with senior procurement specialist Miss Lizette Duque and assessed bilateral heels and the patient has crust area on Right posterior heel, that appeared to be resolving, no wound care needed at this time. Continue to turn patient every 2 hours for comfort and offloading of pressure from kimmy prominences. Objective Vital Signs Date Time Temp Pulse Resp B/P (MAP) Pulse Ox O2 Delivery O2 Flow Rate FiO2 08/13/17 08:46 90 21 08/13/17 08:00 97.7 81 20 181/61 (101) 96 08/13/17 00:00 97.1 87 20 158/74 (102) 97 08/12/17 20:00 98.1 91 20 140/65 (90) 97 08/12/17 16:00 97.2 85 17 162/72 (102) 96 08/12/17 15:28 85 18 162/72 (102) 08/12/17 12:00 97.0 92 18 174/93 (120) 96 I/O 08/12/17 08/12/17 08/12/17 08/13/17 08/13/17 08/13/17 07:00 15:00 23:00 07:00 15:00 23:00 Intake Total 920 ml 400 ml 1200 ml 0 ml Balance 920 ml 400 ml 1200 ml 0 ml Intake Oral 480 ml 1200 ml 0 ml Packed Cells 400 ml 400 ml Blood Product IV Normal Saline Flush 40 ml # Voids 2 7 6 # Bowel Movements 0 4 5 Result Diagram: 08/13/17 0635 08/13/17 0635 Imaging Last Impressions Chest X-Ray 08/11/17 1554 Signed Impressions: Service Date/Time: Friday, August 11, 2017 16:08 - CONCLUSION: Findings suggestive of pulmonary edema. Mor Poole MD Procedures Status post EGD with biopsy followed by Colonoscopy with Snare polypectomy, found Hiatal hernia, Gastritis, Diverticulosis. new Colonoscopy in 3 months. Other Results Laboratory Tests Test 08/11/17 15:56 08/12/17 12:38 08/13/17 06:35 Stomatocytes 1+ Prothrombin Time 11.4 SEC Prothromb Time International Ratio 1.1 RATIO Activated Partial Thromboplast Time 23.5 SEC Blood Urea Nitrogen 20 MG/DL 22 MG/DL Creatinine 0.72 MG/DL 0.76 MG/DL Random Glucose 151 MG/DL 124 MG/DL Total Protein 6.9 GM/DL Albumin 2.9 GM/DL Calcium Level 8.2 MG/DL 8.4 MG/DL Alkaline Phosphatase 126 U/L Aspartate Amino Transf (AST/SGOT) 15 U/L Alanine Aminotransferase (ALT/SGPT) 15 U/L Total Bilirubin 0.6 MG/DL Sodium Level 144 MEQ/L 141 MEQ/L Potassium Level 3.8 MEQ/L 3.5 MEQ/L Chloride Level 107 MEQ/L 99 MEQ/L Carbon Dioxide Level 30.2 MEQ/L 36.0 MEQ/L B-Type Natriuretic Peptide 308 PG/ML Acanthocytes OCC White Blood Count 10.5 TH/MM3 Red Blood Count 5.02 MIL/MM3 Hemoglobin 9.9 GM/DL Hematocrit 33.1 % Mean Corpuscular Volume 66.0 FL Mean Corpuscular Hemoglobin 19.8 PG Mean Corpuscular Hemoglobin Concent 29.9 % Red Cell Distribution Width 27.7 % Platelet Count 207 TH/MM3 Mean Platelet Volume 8.3 FL Neutrophils (%) (Auto) 82.3 % Lymphocytes (%) (Auto) 12.0 % Monocytes (%) (Auto) 5.2 % Eosinophils (%) (Auto) 0.1 % Basophils (%) (Auto) 0.4 % Neutrophils # (Auto) 8.7 TH/MM3 Lymphocytes # (Auto) 1.3 TH/MM3 Monocytes # (Auto) 0.5 TH/MM3 Eosinophils # (Auto) 0.0 TH/MM3 Basophils # (Auto) 0.0 TH/MM3 CBC Comment AUTO DIFF Differential Comment AUTO DIFF CONFIRMED Platelet Estimate NORMAL Platelet Morphology Comment NORMAL Ovalocytes 1+ Magnesium Level 1.7 MG/DL Anion Gap 6 MEQ/L Estimat Glomerular Filtration Rate 72 ML/MIN Objective Remarks GENERAL: Obese patient in no acute distress. SKIN: Pale. No rashes, ecchymoses or lesions. Cool and dry. Pressure ulcer left heel with dressing intact. CARDIOVASCULAR: Regular rate and rhythm without murmurs, gallops, or rubs. RESPIRATORY: Decreased breath sounds. No rales/rhonchi. GASTROINTESTINAL: Abdomen soft, non-tender, nondistended. No guarding. MUSCULOSKELETAL: Extremities without clubbing, cyanosis, or edema. No joint tenderness, effusion, or edema noted. No calf tenderness. NEUROLOGICAL: Awake and alert. Cranial nerves II through XII intact. Bilateral lower extremity residual weakness secondary to CVA. Normal speech. Medications and IVs Current Medications Medications (Trade) Dose Ordered Sig/Yue Route Start Time Stop Time Status Last Admin (NS Flush) 2 ml UNSCH PRN IV FLUSH 08/11/17 19:15 (NS Flush) 2 ml BID IV FLUSH 08/11/17 21:00 08/13/17 07:31 (Tylenol) 650 mg Q4H PRN PO 08/11/17 19:15 (Zofran Inj) 4 mg Q6H PRN IVP 08/11/17 19:15 (Narcan Inj) 0.4 mg UNSCH PRN IV PUSH 08/11/17 19:15 (Susan-Colace) 1 tab BID PO 08/11/17 21:00 08/13/17 07:30 (Milk Of Magnesia Liq) 30 ml Q12H PRN PO 08/11/17 19:15 (Senokot) 17.2 mg Q12H PRN PO 08/11/17 19:15 (Dulcolax Supp) 10 mg DAILY PRN RECTAL 08/11/17 19:15 (Lactulose Liq) 30 ml DAILY PRN PO 08/11/17 19:15 (Aricept) 5 mg HS PO 08/11/17 21:00 08/12/17 19:38 (D50w (Vial) Inj) 50 ml UNSCH PRN IV PUSH 08/11/17 19:15 08/12/17 19:46 (Glucagon Inj) 1 mg UNSCH PRN OTHER 08/11/17 19:15 (NovoLOG SUPPLEMENTAL SCALE) 1 ACHS SLIDING SCALE SQ 08/11/17 21:00 08/12/17 17:37 (SoluMEDROL INJ) 40 mg Q12HR IV PUSH 08/12/17 09:00 08/13/17 07:30 (Lasix Inj) 20 mg BID@09,18 IV PUSH 08/12/17 09:00 08/13/17 07:30 (Protonix Inj) 40 mg Q24H IV PUSH 08/11/17 22:00 08/12/17 19:38 (Duoneb Neb) 1 ampule QID NEB PRN NEB 08/12/17 08:45 (Albuterol Neb) 2.5 mg Q4HR NEB PRN NEB 08/12/17 08:30 (Zithromax) 250 mg DAILY PO 08/13/17 09:00 08/17/17 08:59 08/13/17 07:31 (Vasotec Inj) 1.25 mg Q6H PRN IV PUSH 08/12/17 15:45 08/13/17 08:54 Lactated Ringer's 1,000 ml @ 30 mls/hr Q24H PRN IV 08/13/17 00:15 08/16/17 00:14 Sodium Chloride 500 ml @ 30 mls/hr [id number] PRN IV 08/13/17 00:15 08/16/17 00:14 (Lopressor) 25 mg [employer]NA[employer] PRN PO 08/13/17 00:15 08/16/17 00:14 (Betadine 5% Antisepsis Kit) 1 applic [employer] PRN EACH NARE 08/13/17 00:15 08/16/17 00:14 (Chlorhexidine 2% Cloth) 3 pack [employer] PRN TOPICAL 08/13/17 00:15 08/16/17 00:14 (NovoLIN R INJ) See Protocol Table ... [employer]NA[employer] PRN SQ 08/13/17 00:15 08/16/17 00:14 A/P Assessment and Plan 1. Severe, symptomatic anemia secondary to acute blood loss from GI bleed, Hemoccult positive in ER, Status post blood transfusion of 2 units of PRBCs, Status post EGD with biopsy followed by Colonoscopy with Snare polypectomy, found Hiatal hernia, Gastritis, Diverticulosis. new Colonoscopy in 3 months. 2. COPD exacerbation/Pulmonary Edema, oxygen, CXR showed Pulmonary Edema, IV Lasix, IV Steroids, Azithromycin, switch steroids to by Mouth after Endoscopy, Bronchodilator, Mucolytic and Incentive spirometry. Improved today. continue IV steroids by now. has Hypoxemia receiving 2 L/min. Oxygen will continue this at home. 3. History of CVA, Holding Aspirin and Plavix. if no pathology by GI specialist will continue one of the two medicines, probably will continue Plavix and follow by GI to re start if indicated Aspirin. 4. DM II, SSI uncontrolled due to Steroids will remove it by tomorrow and continue by mouth. will go home on her Home medicines. 5. Chronic Pressure Ulcer, Discussed with senior procurement specialist Miss Lizette Duque and assessed bilateral heels and the patient has crust area on Right posterior heel, that appeared to be resolving, no wound care needed at this time. Continue to turn patient every 2 hours for comfort and offloading of pressure from kimmy prominences. 6. Dementia Continue home Aricept Stable status post EGD and Colonoscopy follow laboratory in am tomorrow and discharge Home on HHC as recommended by Physical Therapy Discharge Planning okay to discharge Home tomorrow if laboratory stable. Paddy Antunez MD Aug 13, 2017 09:53
[2017-08-13] MEDS ORDERED: GLUCAGON 1 MG/ML VIAL IV PUSH ONE (10:59)
--- NOTE | 2017-08-13 11:27 | PD.PROCEDR ---
GI Procedure REFERRING PHYSICIAN kolby PROCEDURE PERFORMED EGD with biopsy followed by colonoscopy with snare polypectomy INDICATION FOR PROCEDURE Anemia, guaiac-positive stools PROCEDURE: The procedure, risks and benefits were discussed with Ms. Boggs and informed consent was obtained. Anesthesia sedated her with Diprivan. She was placed in the left lateral decubitus position. EGD: The Pentax videoscope was introduced through the oropharynx and advanced to the second portion of the duodenum under direct visualization. Retroflexion was performed in the stomach. FINDINGS: Esophagus this was unremarkable except for the Z line was irregular this was biopsied Stomach there was some patchy erythema in the antrum but no ulcerations or erosions no blood or bleeding this was biopsied the stomach was otherwise unremarkable Duodenum this was normal and random biopsies were taken for further evaluation Colonoscopy: The Pentax videoscope was introduced through the rectum and advanced to cecum where the ileocecal valve and appendiceal orifice were identified. Retroflexion was performed in the rectum. Colonic prep was good FINDINGS: There was a large sessile polyp in the cecum this was removed in piecemeal fashion with snare polypectomy and cautery the patient was also noted to have severe diverticulosis of the sigmoid region otherwise colonic examination was unremarkable so as retroflexion in rectal examination ESTIMATED BLOOD LOSS: None SPECIMENS REMOVED: Esophageal, gastric, duodenum, colon, samples COMPLICATIONS: None IMPRESSION: Irregular Z line Hiatal hernia Gastritis Colon polyp Diverticulosis PLAN: Await biopsy Small bowel follow-through Monitor labs Colonoscopy in 3 months Ronnie Ornelas MD Aug 13, 2017 11:27
[2017-08-13 12:00] VITALS: BP 144/82; PULSE 80; RESP 20; TEMP 98.1; O2SAT 95
[2017-08-13] MEDS ORDERED: LIDOCAINE HCL 1% PF 5 ML SYRINGE OTHER ONE (12:00)
[2017-08-13] MEDS ORDERED: PROPOFOL 200 MG/20 ML AMP IV ONE (12:00)
[2017-08-13] MEDS ORDERED: MAGNESIUM CITRATE SOLN 300 ML BTL PO ONE ×2 (12:15→18:00)
--- NOTE | 2017-08-13 12:46 | PD.WCN.NOT ---
Wound Consult Description: Received consult from Doctor Bautista for wound management of L heel Communicated with: JOSE Spring and Doctor Tl Marquez Recommendation: Please apply skin prep R heel crust and leave open. Float bilateral heels on pillow. Additional Information: Patient seen on for evaluation of wound management of L heel.Patient was seen with the assitance of Anastasiia PAINTER, Elicia Spring RN [address] [place] [id number], and editorial writer. Patient arrived back to room from procedure and was transferred back to bed before wound assessment. Assessed bilateral heels. No open areas are noted. Crust is assessed to R posterior heel , that appears to be resolving. All kimmy prominences assessed and appear within normal limits . Continue to turn patient every 2 hours for comfort and offloading of pressure from kimmy prominences. Lizette Duque [facility] Aug 13, 2017 12:46
--- NOTE | 2017-08-13 14:45 | RADRPT ---
EXAM DATE/TIME: 08/13/2017 12:34 [facility] COMPARISON: No previous studies available for comparison. INDICATIONS : Anemia. FLUORO TIME: .3 minutes IMAGE COUNT: 14 CONTRAST: Entero Vu 24% Barium Sulfate (24% w/v, 20% w/w) IMAGING TIME(S): 15 min, 30 min, 45 min, 1 hr, 1.5 hrs MEDICAL HISTORY : Chronic obstructive pulmonary disease. Congestive heart failure. SURGICAL HISTORY : Appendectomy. Cholecystectomy. Hysterectomy. ENCOUNTER: Initial ACUITY: 1 day PAIN SCORE: 0/10 LOCATION: Bilateral abdomen FINDINGS: Preliminary film is unremarkable. The stomach is grossly unremarkable. Examination of the small bowel demonstrates normal mucosal pattern involving the jejunum and ileum. There is no evidence of mass or obstruction. No intraluminal filling defects are identified. Small bowel transit time is normal at 60 minutes. Fluoroscopy of the abdomen and terminal ileum demonstrat es no abnormality. Spot compression views demonstrates focal cecal deformity with incomplete distention. A prominent ile ocecal valve is identified. CONCLUSION: Unremarkable small bowel examination. Cecal deformity with incomplete distention which may be related to scarring following appendectomy. I ntraluminal filling defect within the cecum cannot be excluded. Concerning the patient's anemia furth er evaluation with either CT colonography or direct visualization should be considered. Elijah Peres MD on August 13, 2017 at 14:36 Board Certified Radiologist. This report was verified electronically.
--- NOTE | 2017-08-13 15:15 | ECHRPT ---
Indication: Heart failure CONCLUSIONS Normal left ventricular size. Moderate concentric left ventricular hypertrophy. The left ventricular systolic function is low normal with an estimated ejection fraction in the rang e of 50%. Trace aortic valve regurgitation. No significant valvulopathies No pericardial effusion BP: 174 / 93 HR: 120 Rhythm: MEASUREMENTS (Male / Female) Normal Values Technical Quality:Good 2D ECHO LV Diastolic Diameter PLAX 4.7 cm 4.2 - 5.9 / 3.9 - 5.3 cm LV Systolic Diameter PLAX 3.6 cm IVS Diastolic Thickness 1.4 cm 0.6 - 1.0 / 0.6 - 0.9 cm LVPW Diastolic Thickness 0.8 cm 0.6 - 1.0 / 0.6 - 0.9 cm LV Relative Wall Thickness 0.5 RV Internal Dim ED PLAX 2.1 cm LA Systolic Diameter LX 3.4 cm 3.0 - 4.0 / 2.7 - 3.8 cm DOPPLER AV Peak Velocity 158.5 cm/s AV Peak Gradient 10.0 mmHg AV Mean Gradient 4.5 mmHg AV Velocity Time Integral 39.6 cm MV Peak Velocity 146.0 cm/s MV Peak Gradient 8.5 mmHg MV Mean Velocity 81.3 cm/s MV Mean Gradient 3.0 mmHg Mitral E Point Velocity 100.0 cm/s Mitral A Point Velocity 148.0 cm/s Mitral E to A Ratio 0.7 TR Peak Velocity 164.0 cm/s TR Peak Gradient 10.8 mmHg FINDINGS LEFT VENTRICLE Normal left ventricular size. Moderate concentric left ventricular hypertrophy. The left ventricular systolic function is low normal with an estimated ejection fraction in the rang e of 50%. RIGHT VENTRICLE Normal right ventricular size and systolic function. LEFT ATRIUM The left atrial size is normal. RIGHT ATRIUM The right atrial size is normal. ATRIAL SEPTUM Normal atrial septal thickness without atrial level shunting by limited color doppler interrogation. AORTA The aortic root and proximal ascending aorta are normal in size on limited imaging. MITRAL VALVE Structurally normal mitral valve. No mitral valve stenosis or regurgitation. AORTIC VALVE Trace aortic valve regurgitation. TRICUSPID VALVE Structurally normal tricuspid valve. No tricuspid valve stenosis or regurgitation. PULMONARY VALVE The pulmonary valve is not well visualized. VESSELS The inferior vena cava is normal in size. PERICARDIUM No pericardial effusion. Catracho Edmonds MD (Electronically Signed) Final Date:13 August 2017 15:14
[2017-08-13 16:00] VITALS: BP 146/79; PULSE 86; RESP 20; TEMP 97.6; O2SAT 93
[2017-08-13] MEDS: BISACODYL EC 5 MG TABEC PO SCH ×2 (17:44→21:00)
[2017-08-13 20:00] VITALS: BP 135/60; PULSE 85; RESP 20; TEMP 97.7; O2SAT 92
--- NOTE | 2017-08-13 20:42 | EKG ---
Date Performed: 08/13/2017 Time Performed: 07:12:41 PTAGE: 87 years EKG: ECTOPIC ATRIAL RHYTHM MARKED LEFT AXIS DEVIATION RIGHT BUNDLE BRANCH BLOCK ABNORMAL ECG PREVIOUS TRACING : 07/10/2014 13.30 Compared to prior tracing no significant change DOCTOR: Kenneth Daugherty Interpretating Date/Time 08/13/2017 20:41:06
[2017-08-13] MEDS: DONEPEZIL HCL 5 MG TAB PO SCH (22:01)
[2017-08-13] MEDS: PANTOPRAZOLE SODIUM 40 MG VIAL IV PUSH SCH (22:01)
[2017-08-14] VITALS: BP 147/65; PULSE 83; RESP 18; TEMP 98.1; O2SAT 92
[2017-08-14 07:54] VITALS: BP 168/72; PULSE 85; RESP 20; TEMP 97.2; O2SAT 93
[2017-08-14] MEDS: DOCUSATE SODIUM 50 MG/SENNA 8.6 MG TAB PO SCH ×2 (09:46→21:51)
[2017-08-14] MEDS: AZITHROMYCIN 250 MG TAB PO SCH (09:47)
[2017-08-14] MEDS: FUROSEMIDE 20 MG/2 ML VIAL IV PUSH SCH ×2 (09:47→16:23)
[2017-08-14] MEDS: methylPREDNISolone SOD SUCC 40 MG/1 ML VIAL IV PUSH SCH (09:47)
[2017-08-14] MEDS: SODIUM CHLORIDE 0.9% FLUSH 10 ML FLUSH IV FLUSH SCH ×2 (09:47→22:08)
[2017-08-14] MEDS: INSULIN ASPART SUPPLEMENTAL SCALE SQ SCH ×5 (09:48→22:07)
[2017-08-14 11:01] LABS: AUTOMATED NEUTROPHIL # 10.7 TH/MM3 (1.8-7.7); BASOPHIL % 0.2 % (0.0-2.0); EOSINOPHIL % 0.2 % (0.0-4.0); HEMATOCRIT 35.7 % (35.0-46.0); LYMPH % 13.3 % (9.0-44.0); LYMPHOCYTE # 1.7 TH/MM3 (1.0-4.8); MEAN CELL VOLUME 65.9 FL (80.0-100.0); MEAN CORPUSCULAR HEMOGLOBIN 19.6 PG (27.0-34.0); MONO % 4.7 % (0.0-8.0); NEUT % 81.6 % (16.0-70.0); PLATELET COUNT 201 TH/MM3 (150-450); RED BLOOD COUNT 5.42 MIL/MM3 (4.00-5.30); RED CELL DISTRIBUTION WIDTH 29.2 % (11.6-17.2); WHITE BLOOD COUNT 13.1 TH/MM3 (4.0-11.0)
[2017-08-14 11:07] LABS: MEAN CORPUSCULAR HGB CONC 29.7 % (32.0-36.0)
[2017-08-14 11:08] LABS: HEMO FLAGS AUTO DIFF
--- NOTE | 2017-08-14 11:10 | HHI.FF ---
Face to Face Verification Diagnosis: (1) GI bleed (2) Diabetes mellitus (3) Anemia (4) Wheelchair bound Home Health Nursing Order: Medical education Signs/symptoms of disease process Diabetic education Oxygen administration education Medication education-adverse effect Nursing assessment with vital signs I have seen patient Rosaline Boggs on 08/14/17. My clinical findings support the need for the requested home health care services because: Limited ability to care for self I certify that my clinical findings support that this patient is homebound because: Unsafe to leave home unassisted Paddy Antunez MD Aug 14, 2017 11:10
[2017-08-14 11:25] LABS: BICARBONATE 33.7 MEQ/L (21.0-32.0); POTASSIUM 3.2 MEQ/L (3.5-5.1)
[2017-08-14 11:41] LABS: SCAN/DIFF AUTO DIFF CONFIRMED
[2017-08-14 12:00] VITALS: BP 154/67; PULSE 91; RESP 18; TEMP 97.2; O2SAT 92
[2017-08-14] MEDS ORDERED: METO25TA3 PO (13:14)
[2017-08-14] MEDS ORDERED: FURO1TAB60 PO ×2 (13:14→15:55)
[2017-08-14] MEDS ORDERED: PROT40TA PO ×2 (13:14→15:55)
[2017-08-14] MEDS ORDERED: AZIT250T3 PO ×2 (13:14→15:55)
[2017-08-14] MEDS ORDERED: PRED20 PO ×2 (13:14→15:55)
--- NOTE | 2017-08-14 13:30 | HHI.PR ---
Subjective Remarks Follow up of patient with Anemia and Pulmonary Edema, she is DNI. Status post EGD with biopsy followed by Colonoscopy with Snare polypectomy, found Hiatal hernia, Gastritis, Diverticulosis. new Colonoscopy in 3 months. Discussed with geoscience specialist Miss Lizette Duque and assessed bilateral heels and the patient has crust area on Right posterior heel, that appeared to be resolving, no wound care needed at this time. Continue to turn patient every 2 hours for comfort and offloading of pressure from kimmy prominences. 08/14: Patient stable in her bedroom, no further recommendations by GI specialist other than will need a new Colonoscopy replacing Potassium and magnesium, I will continue this replacement at home, also added Amlodipine low dose for blood pressure and will follow and titrate by PCP as outpatient, her blood sugar is been uncontrolled but is related to her Solu-Medrol removed now and continue on Prednisone by Mouth at home. discussed with nurse Miss Jamil and with her Daughter Miss Grzegorz Canales. Objective Vital Signs Date Time Temp Pulse Resp B/P (MAP) Pulse Ox O2 Delivery O2 Flow Rate FiO2 08/14/17 12:00 97.2 91 18 154/67 (96) 92 08/14/17 07:54 97.2 85 20 168/72 (104) 93 08/14/17 00:00 98.1 83 18 147/65 (92) 92 08/13/17 20:00 97.7 85 20 135/60 (85) 92 08/13/17 18:38 2.00 08/13/17 16:00 97.6 86 20 146/79 (101) 93 I/O 08/13/17 08/13/17 08/13/17 08/14/17 08/14/17 08/14/17 07:00 15:00 23:00 07:00 15:00 23:00 Intake Total 0 ml 700 ml 480 ml Balance 0 ml 700 ml 480 ml Intake Oral 0 ml 480 ml Other 700 ml # Voids 6 8 4 # Bowel Movements 5 6 Result Diagram: 08/14/17 1021 08/14/17 1021 Imaging Last Impressions Small Bowel X-Ray 08/13/17 0000 Signed Impressions: Service Date/Time: Sunday, August 13, 2017 12:34 - CONCLUSION: Unremarkable small bowel examination. Cecal deformity with incomplete distention which may be related to scarring following appendectomy. Intraluminal filling defect within the cecum cannot be excluded. Concerning the patient's anemia further evaluation with either CT colonography or direct visualization should be considered. Elijah Peres MD Chest X-Ray 08/11/17 1543 Signed Impressions: Service Date/Time: Friday, August 11, 2017 16:08 - CONCLUSION: Findings suggestive of pulmonary edema. Mor Poole MD Procedures Status post EGD with biopsy followed by Colonoscopy with Snare polypectomy, found Hiatal hernia, Gastritis, Diverticulosis. new Colonoscopy in 3 months. Other Results Laboratory Tests Test 08/11/17 15:56 08/12/17 12:38 08/13/17 06:35 08/14/17 10:21 Stomatocytes 1+ Prothrombin Time 11.4 SEC Prothromb Time International Ratio 1.1 RATIO Activated Partial Thromboplast Time 23.5 SEC Blood Urea Nitrogen 20 MG/DL 22 MG/DL 30 MG/DL Creatinine 0.72 MG/DL 0.76 MG/DL 1.08 MG/DL Random Glucose 151 MG/DL 124 MG/DL 165 MG/DL Total Protein 6.9 GM/DL Albumin 2.9 GM/DL Calcium Level 8.2 MG/DL 8.4 MG/DL 8.5 MG/DL Alkaline Phosphatase 126 U/L Aspartate Amino Transf (AST/SGOT) 15 U/L Alanine Aminotransferase (ALT/SGPT) 15 U/L Total Bilirubin 0.6 MG/DL Sodium Level 144 MEQ/L 141 MEQ/L 136 MEQ/L Potassium Level 3.8 MEQ/L 3.5 MEQ/L 3.2 MEQ/L Chloride Level 107 MEQ/L 99 MEQ/L 92 MEQ/L Carbon Dioxide Level 30.2 MEQ/L 36.0 MEQ/L 33.7 MEQ/L B-Type Natriuretic Peptide 308 PG/ML Acanthocytes OCC Platelet Estimate NORMAL Platelet Morphology Comment NORMAL Ovalocytes 1+ Magnesium Level 1.7 MG/DL White Blood Count 13.1 TH/MM3 Red Blood Count 5.42 MIL/MM3 Hemoglobin 10.6 GM/DL Hematocrit 35.7 % Mean Corpuscular Volume 65.9 FL Mean Corpuscular Hemoglobin 19.6 PG Mean Corpuscular Hemoglobin Concent 29.7 % Red Cell Distribution Width 29.2 % Platelet Count 201 TH/MM3 Mean Platelet Volume 8.4 FL Neutrophils (%) (Auto) 81.6 % Lymphocytes (%) (Auto) 13.3 % Monocytes (%) (Auto) 4.7 % Eosinophils (%) (Auto) 0.2 % Basophils (%) (Auto) 0.2 % Neutrophils # (Auto) 10.7 TH/MM3 Lymphocytes # (Auto) 1.7 TH/MM3 Monocytes # (Auto) 0.6 TH/MM3 Eosinophils # (Auto) 0.0 TH/MM3 Basophils # (Auto) 0.0 TH/MM3 CBC Comment AUTO DIFF Differential Comment AUTO DIFF CONFIRMED Anion Gap 10 MEQ/L Estimat Glomerular Filtration Rate 48 ML/MIN Objective Remarks GENERAL: Obese patient in no acute distress. SKIN: Pale. No rashes, ecchymoses or lesions. Cool and dry. Pressure ulcer left heel with dressing intact. CARDIOVASCULAR: Regular rate and rhythm without murmurs, gallops, or rubs. RESPIRATORY: Decreased breath sounds. No rales/rhonchi. GASTROINTESTINAL: Abdomen soft, non-tender, nondistended. No guarding. MUSCULOSKELETAL: Extremities without clubbing, cyanosis, or edema. No joint tenderness, effusion, or edema noted. No calf tenderness. NEUROLOGICAL: Awake and alert. Cranial nerves II through XII intact. Bilateral lower extremity residual weakness secondary to CVA. Normal speech. Medications and IVs Current Medications Medications (Trade) Dose Ordered Sig/Yue Route Start Time Stop Time Status Last Admin (NS Flush) 2 ml UNSCH PRN IV FLUSH 08/11/17 19:15 (NS Flush) 2 ml BID IV FLUSH 08/11/17 21:00 08/14/17 09:47 (Tylenol) 650 mg Q4H PRN PO 08/11/17 19:15 (Zofran Inj) 4 mg Q6H PRN IVP 08/11/17 19:15 (Narcan Inj) 0.4 mg UNSCH PRN IV PUSH 08/11/17 19:15 (Susan-Colace) 1 tab BID PO 08/11/17 21:00 08/14/17 09:46 (Milk Of Magnesia Liq) 30 ml Q12H PRN PO 08/11/17 19:15 (Senokot) 17.2 mg Q12H PRN PO 08/11/17 19:15 (Dulcolax Supp) 10 mg DAILY PRN RECTAL 08/11/17 19:15 (Lactulose Liq) 30 ml DAILY PRN PO 08/11/17 19:15 (Aricept) 5 mg HS PO 08/11/17 21:00 08/13/17 22:01 (D50w (Vial) Inj) 50 ml UNSCH PRN IV PUSH 08/11/17 19:15 08/12/17 19:46 (Glucagon Inj) 1 mg UNSCH PRN OTHER 08/11/17 19:15 (NovoLOG SUPPLEMENTAL SCALE) 1 ACHS SLIDING SCALE SQ 08/11/17 21:00 08/14/17 13:15 (Lasix Inj) 20 mg BID@,18 IV PUSH 08/12/17 09:00 08/14/17 09:47 (Protonix Inj) 40 mg Q24H IV PUSH 08/11/17 22:00 08/13/17 22:01 (Duoneb Neb) 1 ampule QID NEB PRN NEB 08/12/17 08:45 (Albuterol Neb) 2.5 mg Q4HR NEB PRN NEB 08/12/17 08:30 (Zithromax) 250 mg DAILY PO 08/13/17 09:00 08/17/17 08:59 08/14/17 09:47 (Vasotec Inj) 1.25 mg Q6H PRN IV PUSH 08/12/17 15:45 08/13/17 08:54 (Betadine 5% Antisepsis Kit) 1 applic BAG MACHINE OPERATOR HELPER PRN EACH NARE 08/13/17 00:15 08/16/17 00:14 (Chlorhexidine 2% Cloth) 3 pack BAG MACHINE OPERATOR HELPER PRN TOPICAL 08/13/17 00:15 08/16/17 00:14 (NovoLIN R INJ) See Protocol Table ... BAG MACHINE OPERATOR HELPER PRN SQ 08/13/17 00:15 08/16/17 00:14 (Deltasone) 20 mg DAILY PO 08/15/17 09:00 UNV A/P Assessment and Plan 1. Severe, symptomatic anemia secondary to acute blood loss from GI bleed, Hemoccult positive in ER, Status post blood transfusion of 2 units of PRBCs, Status post EGD with biopsy followed by Colonoscopy with Snare polypectomy, found Hiatal hernia, Gastritis, Diverticulosis. new Colonoscopy in 3 months. will continue PPI and Carafate at home. 2. COPD exacerbation/Pulmonary Edema, oxygen, CXR showed Pulmonary Edema, IV Lasix, IV Steroids, Azithromycin, switch steroids to by Mouth after Endoscopy, Bronchodilator, Mucolytic and Incentive spirometry. Improved today. continue IV steroids by now. has Hypoxemia receiving 2 L/min. Oxygen will continue this at home. 3. History of CVA, Holding Aspirin and Plavix. if no pathology by GI specialist will continue one of the two medicines, probably will continue Plavix and follow by GI to re start if indicated Aspirin. 4. DM II, SSI uncontrolled due to Steroids, removed IV Solu-Medrol will continue Prednisone 20 mg daily for five days. 5. Chronic Pressure Ulcer, Discussed with geoscience specialist Miss Lizette Duque and assessed bilateral heels and the patient has crust area on Right posterior heel, that appeared to be resolving, no wound care needed at this time. Continue to turn patient every 2 hours for comfort and offloading of pressure from kimmy prominences. 6. Dementia Continue home Aricept 7. Obesity patient is wheelchair bound 8. Leukocytosis patient on Steroids. 9. Wheelchairbound patient Stable status post EGD and Colonoscopy follow laboratory in am tomorrow and discharge Home on [facility] as recommended by Physical Therapy Discharge Planning Discharge Home today on [facility] Paddy Antunez MD Aug 14, 2017 13:30
[2017-08-14] MEDS ORDERED: amLODIPine BESYLATE 5 MG TAB PO SCH (14:15)
[2017-08-14] MEDS ORDERED: PILL SPLITTER OTHER PRN (14:15)
[2017-08-14] MEDS ORDERED: POTASSIUM CHLORIDE 20 MEQ CONTROLLED RELEASE TAB PO ONE ×2 (14:30→16:30)
[2017-08-14] MEDS ORDERED: OXYGENTANK NAS.CANULA (15:45)
[2017-08-14] MEDS ORDERED: POTA-163 PO ×2 (15:55→16:00)
[2017-08-14] MEDS ORDERED: MAGN400T2 PO (15:55)
[2017-08-14] MEDS ORDERED: CARA1TAB6 PO (15:56)
[2017-08-14 16:00] VITALS: BP 156/68; PULSE 88; RESP 18; TEMP 98.2; O2SAT 93
--- NOTE | 2017-08-14 16:00 | HHI.DS ---
Discharge Summary Admission Date Aug 11, 2017 at 17:54 Discharge Date: Aug 14, 2017 Admitting Diagnosis GI bleed, anemia, hypoxia (1) Anemia ICD Code: D64.9 - Anemia, unspecified Diagnosis: Principal (2) GI bleed ICD Code: K92.2 - Gastrointestinal hemorrhage, unspecified Diagnosis: Principal (3) COPD (chronic obstructive pulmonary disease) ICD Code: J44.9 - Chronic obstructive pulmonary disease, unspecified Diagnosis: Principal Procedures Status post EGD with biopsy followed by Colonoscopy with Snare polypectomy, found Hiatal hernia, Gastritis, Diverticulosis. new Colonoscopy in 3 months. Brief History - From Admission 87-year-old female with a past medical history significant for COPD (not on home oxygen), h/o CVA, type 2 diabetes mellitus, dementia and chronic wounds for which she sees wound care is brought to the emergency department by EMS for shortness of breath. The patient reports her shortness of breath started this morning and has been gradually increasing. She has a cough which is unchanged from her chronic cough, nonproductive. She denies subjective fever/chills. Denies chest pain, nausea/vomiting. Patient was found to be severely anemic with an H&H of 6.9/25.3. Chest x-ray showed pulmonary edema. Afebrile, tachycardic with a pulse of 107, respiratory rate 22, blood pressure 161/72 oxygen saturation 94% on 3 L nasal cannula. CBC/BMP: 08/14/17 1021 08/14/17 1021 Significant Findings Laboratory Tests Test 08/12/17 12:38 08/13/17 06:35 08/14/17 10:21 White Blood Count 13.6 TH/MM3 (4.0-11.0) 13.1 TH/MM3 (4.0-11.0) Hemoglobin 9.9 GM/DL (11.6-15.3) 9.9 GM/DL (11.6-15.3) 10.6 GM/DL (11.6-15.3) Hematocrit 33.5 % (35.0-46.0) 33.1 % (35.0-46.0) Mean Corpuscular Volume 65.3 FL (80.0-100.0) 66.0 FL (80.0-100.0) 65.9 FL (80.0-100.0) Mean Corpuscular Hemoglobin 19.2 PG (27.0-34.0) 19.8 PG (27.0-34.0) 19.6 PG (27.0-34.0) Mean Corpuscular Hemoglobin Concent 29.4 % (32.0-36.0) 29.9 % (32.0-36.0) 29.7 % (32.0-36.0) Red Cell Distribution Width 27.8 % (11.6-17.2) 27.7 % (11.6-17.2) 29.2 % (11.6-17.2) Neutrophils (%) (Auto) 94.0 % (16.0-70.0) 82.3 % (16.0-70.0) 81.6 % (16.0-70.0) Lymphocytes (%) (Auto) 3.7 % (9.0-44.0) Neutrophils # (Auto) 12.8 TH/MM3 (1.8-7.7) 8.7 TH/MM3 (1.8-7.7) 10.7 TH/MM3 (1.8-7.7) Lymphocytes # (Auto) 0.5 TH/MM3 (1.0-4.8) Ovalocytes 1+ (NORMAL) 1+ (NORMAL) Acanthocytes OCC (NORMAL) Blood Urea Nitrogen 24 MG/DL (7-18) 22 MG/DL (7-18) 30 MG/DL (7-18) Random Glucose 174 MG/DL (74-106) 124 MG/DL (74-106) 165 MG/DL (74-106) Estimat Glomerular Filtration Rate 60 ML/MIN (>89) 72 ML/MIN (>89) 48 ML/MIN (>89) Calcium Level 8.4 MG/DL (8.5-10.1) Carbon Dioxide Level 36.0 MEQ/L (21.0-32.0) 33.7 MEQ/L (21.0-32.0) Red Blood Count 5.42 MIL/MM3 (4.00-5.30) Creatinine 1.08 MG/DL (0.50-1.00) Potassium Level 3.2 MEQ/L (3.5-5.1) Chloride Level 92 MEQ/L (98-107) PE at Discharge GENERAL: Obese patient in no acute distress. SKIN: Pale. No rashes, ecchymoses or lesions. Cool and dry. Pressure ulcer left heel with dressing intact. CARDIOVASCULAR: Regular rate and rhythm without murmurs, gallops, or rubs. RESPIRATORY: Decreased breath sounds. No rales/rhonchi. GASTROINTESTINAL: Abdomen soft, non-tender, nondistended. No guarding. MUSCULOSKELETAL: Extremities without clubbing, cyanosis, or edema. No joint tenderness, effusion, or edema noted. No calf tenderness. NEUROLOGICAL: Awake and alert. Cranial nerves II through XII intact. Bilateral lower extremity residual weakness secondary to CVA. Normal speech. Hospital Course Follow up of patient with Anemia and Pulmonary Edema, she is DNI. Status post EGD with biopsy followed by Colonoscopy with Snare polypectomy, found Hiatal hernia, Gastritis, Diverticulosis. new Colonoscopy in 3 months. Discussed with placement specialist Miss Lizette Duque and assessed bilateral heels and the patient has crust area on Right posterior heel, that appeared to be resolving, no wound care needed at this time. Continue to turn patient every 2 hours for comfort and offloading of pressure from kimmy prominences. 08/14: Patient stable in her bedroom, no further recommendations by GI specialist other than will need a new Colonoscopy replacing Potassium and magnesium, I will continue this replacement at home, also added Amlodipine low dose for blood pressure and will follow and titrate by PCP as outpatient, her blood sugar is been uncontrolled but is related to her Solu-Medrol removed now and continue on Prednisone by Mouth at home. discussed with nurse Miss Jamil and with her Daughter Miss Grzegorz Canales. Assessment and Plan 1. Severe, symptomatic anemia secondary to acute blood loss from GI bleed, Hemoccult positive in ER, Status post blood transfusion of 2 units of PRBCs, Status post EGD with biopsy followed by Colonoscopy with Snare polypectomy, found Hiatal hernia, Gastritis, Diverticulosis. new Colonoscopy in 3 months. will continue PPI and Carafate at home. 2. COPD exacerbation/Pulmonary Edema, oxygen, CXR showed Pulmonary Edema, IV Lasix, IV Steroids, Azithromycin, switch steroids to by Mouth after Endoscopy, Bronchodilator, Mucolytic and Incentive spirometry. Improved today. continue IV steroids by now. has Hypoxemia receiving 2 L/min. Oxygen will continue this at home. 3. History of CVA, Holding Aspirin and Plavix. if no pathology by GI specialist will continue one of the two medicines, probably will continue Plavix and follow by GI to re start if indicated Aspirin. 4. DM II, SSI uncontrolled due to Steroids, removed IV Solu-Medrol will continue Prednisone 20 mg daily for five days. 5. Chronic Pressure Ulcer, Discussed with placement specialist Miss Lizette Duque and assessed bilateral heels and the patient has crust area on Right posterior heel, that appeared to be resolving, no wound care needed at this time. Continue to turn patient every 2 hours for comfort and offloading of pressure from kimmy prominences. 6. Dementia Continue home Aricept 7. Obesity patient is wheelchair bound 8. Leukocytosis patient on Steroids. 9. Wheelchairbound patient 10. Electrolyte derangement replaced and will continue replacement at home. Discussed with Nurse, Charge nurse and her Daughter Miss Grzegorz Canales Stable status post EGD and Colonoscopy follow laboratory in am tomorrow and discharge Home on [facility] as recommended by Physical Therapy Discharge Planning Discharge Home today on [facility] Pt Condition on Discharge: Stable Discharge Disposition: Disch w/ Home Health Serv Discharge Time: > 30 minutes Discharge Instructions DIET: Follow Instructions for: Diabetic Diet Activities you can perform: Regular-No Restrictions Other Activity Instructions: Patient is Wheelchairbound Paddy Antunez MD Aug 14, 2017 16:00
[2017-08-14] MEDS: MAGNESIUM SULFATE 1 GM PREMIX 100 ML IV SCH ×2 (16:23→18:13)
[2017-08-14 20:00] VITALS: BP 139/67; PULSE 84; RESP 16; TEMP 96.7; O2SAT 92
[2017-08-14] MEDS: DONEPEZIL HCL 5 MG TAB PO SCH (21:51)
[2017-08-14] MEDS: PANTOPRAZOLE SODIUM 40 MG VIAL IV PUSH SCH (22:08)
[2017-08-15] MEDS ORDERED: predniSONE 20 MG TAB PO SCH (09:00)
== END 2017-08-14 22:15 | disposition home health service (06) | DRG 378 ==
LOC: NEPC 15:18 → NEDA 17:54 → N07B 20:30
PROVIDERS: ADMIT Hospitalist; ATTEND Internal Medicine
PROC: 30233N1 Transfusion of Nonautologous Red Blood Cells into Peripheral Vein, Percutaneous Approach (ICD-10-PCS; 2017-08-12)
PROC: 0DB38ZX Excision of Lower Esophagus, Via Natural or Artificial Opening Endoscopic, Diagnostic (ICD-10-PCS; 2017-08-13)
PROC: 0DBH8ZX Excision of Cecum, Via Natural or Artificial Opening Endoscopic, Diagnostic (ICD-10-PCS; 2017-08-13)
PROC: 0DB98ZX Excision of Duodenum, Via Natural or Artificial Opening Endoscopic, Diagnostic (ICD-10-PCS; principal; 2017-08-13 10:27)
PROC: 0DB68ZX Excision of Stomach, Via Natural or Artificial Opening Endoscopic, Diagnostic (ICD-10-PCS; 2017-08-13 10:27)
DX: K92.2 Gastrointestinal hemorrhage, unspecified (principal); J44.1 Chronic obstructive pulmonary disease with (acute) exacerbation; J81.1 Chronic pulmonary edema; E11.65 Type 2 diabetes mellitus with hyperglycemia; F03.90 Unspecified dementia, unspecified severity, without behavioral disturbance, psychotic disturbance, mood disturbance, and anxiety; D62 Acute posthemorrhagic anemia; K29.70 Gastritis, unspecified, without bleeding; K57.30 Diverticulosis of large intestine without perforation or abscess without bleeding; K44.9 Diaphragmatic hernia without obstruction or gangrene; D12.0 Benign neoplasm of cecum; E66.9 Obesity, unspecified; T38.0X5A Adverse effect of glucocorticoids and synthetic analogues, initial encounter; R09.02 Hypoxemia; D72.829 Elevated white blood cell count, unspecified; R23.4 Changes in skin texture; Z79.84 Long term (current) use of oral hypoglycemic drugs; Z68.31 Body mass index [BMI] 31.0-31.9, adult; Z99.3 Dependence on wheelchair; Z86.73 Personal history of transient ischemic attack (TIA), and cerebral infarction without residual deficits; Z91.19 Patient's noncompliance with other medical treatment and regimen; Z88.1 Allergy status to other antibiotic agents; Z88.0 Allergy status to penicillin; Z87.891 Personal history of nicotine dependence
CPT/HCPCS: 36415; 36430; 71010; 74250; 80048; 80053; 82272; 82948; 83735; 83880; 85025; 85610; 85730; 86850; 86900; 86901; 86920; 88305; 88312; 93005; 93306; 94620; 94664; 99285; C9113; J1610; J1815; J1940; J2920; J3475; J7040; J7050; P9016

== ENCOUNTER 2017-09-07 14:29 | Emergency (ER) | payer MEDICARE ==
[~2017-09-07] VITALS: Ht 175.3 cm; Wt 75.0 kg
[~2017-09-07 14:29] MED LIST changes: -ASPI81TA23 PO; +AZIT250T3 PO; +CARA1TAB6 PO; -CENTTAB; -COLA100C3 PO; +DONE5TAB7 PO; +FURO1TAB60 PO; +MAGN400T2 PO; -METF500T PO; +OXYGENTANK NAS.CANULA; +PLAV75TA29 PO; +POTA-163 PO; +PRED20 PO; +PROT40TA PO
[2017-09-07 14:57] VITALS: BP 197/84; PULSE 104; RESP 20; TEMP 98.2; O2SAT 99
[2017-09-07] MEDS ORDERED: FURO40TA PO (15:04)
[2017-09-07] MEDS ORDERED: GLIP5TAB8 PO (15:04)
[2017-09-07 15:41] LABS: AUTOMATED NEUTROPHIL # 10.9 TH/MM3 (1.8-7.7); BASOPHIL % 0.3 % (0.0-2.0); EOSINOPHIL # 0.1 TH/MM3 (0-0.4); EOSINOPHIL % 0.5 % (0.0-4.0); HEMATOCRIT 40.8 % (35.0-46.0); HEMOGLOBIN 11.7 GM/DL (11.6-15.3); LYMPH % 13.7 % (9.0-44.0); LYMPHOCYTE # 1.8 TH/MM3 (1.0-4.8); MEAN CELL VOLUME 70.8 FL (80.0-100.0); MEAN CORPUSCULAR HEMOGLOBIN 20.3 PG (27.0-34.0); MEAN PLATELET VOLUME 8.2 FL (7.0-11.0); MONO % 4.5 % (0.0-8.0); MONOCYTE # 0.6 TH/MM3 (0-0.9); PLATELET COUNT 362 TH/MM3 (150-450); RED BLOOD COUNT 5.76 MIL/MM3 (4.00-5.30); RED CELL DISTRIBUTION WIDTH 27.6 % (11.6-17.2); WHITE BLOOD COUNT 13.5 TH/MM3 (4.0-11.0)
[2017-09-07 15:50] LABS: MEAN CORPUSCULAR HGB CONC 28.7 % (32.0-36.0)
--- NOTE | 2017-09-07 16:06 | RADRPT ---
EXAM DATE/TIME: 09/07/2017 15:26 [facility] COMPARISON: CHEST SINGLE AP, August 11, 2017, 16:08. INDICATIONS : Shortness of breath. MEDICAL HISTORY : Congestive heart failure. Chronic obstructive pulmonary disease. SURGICAL HISTORY : Appendectomy. Hysterectomy. Cholecystectomy. ENCOUNTER: Initial ACUITY: 2 days PAIN SCORE: 0/10 LOCATION: Bilateral chest FINDINGS: The cardiac silhouette is enlarged in transverse diameter. There is left lower lobe atelectasis versu s pneumonia. The right lung is free of acute parenchymal opacity. CONCLUSION: 1. Cardiomegaly. Left lower lobe atelectasis versus pneumonia. Left effusion Jeff Tinsley MD on September 07, 2017 at 16:03 Board Certified Radiologist. This report was verified electronically.
[2017-09-07 16:10] LABS: ALBUMIN 3.1 GM/DL (3.4-5.0); ALKALINE PHOSPHATASE 137 U/L (45-117); ALT (GPT) 30 U/L (10-53); AST (GOT) 55 U/L (15-37); BICARBONATE 29.7 MEQ/L (21.0-32.0); BLOOD UREA NITROGEN 39 MG/DL (7-18); CALCIUM 8.6 MG/DL (8.5-10.1); CHLORIDE 92 MEQ/L (98-107); CREATININE 1.15 MG/DL (0.50-1.00); GLOMERULAR FILTRATION RATE 45 ML/MIN (>89); MAGNESIUM 1.8 MG/DL (1.5-2.5); SODIUM (NA) 130 MEQ/L (136-145); TOTAL BILIRUBIN ADULT 0.5 MG/DL (0.2-1.0); TOTAL PROTEIN 7.8 GM/DL (6.4-8.2)
[2017-09-07 16:15] LABS: GLUCOSE,RANDOM 520 MG/DL (74-106)
[2017-09-07 16:33] LABS: OVALOCYTES 1+ (NORMAL)
[2017-09-07] MEDS ORDERED: INSULIN HUMAN REGULAR 1,000 UNITS/10 ML VIAL SQ ONE (16:45)
--- NOTE | 2017-09-07 17:00 | PD ---
HPI Chief Complaint: Diabetic Time Seen by Provider: 15:09 Travel History International Travel<30 days: No Contact w/Intl Traveler<30days: No Traveled to known affect area: No History of Present Illness HPI 87-year-old female that presents to the ED for evaluation of high blood sugar. Patient came here by ambulance for evaluation of this. Patient is being taken care of by daughter who is has been monitoring her blood sugars and has been showing up high every time she gets checked. Per family has been ongoing for about 2 weeks now. Patient is to take metformin and glipizide but she has stopped the metformin secondary to side effects. Apparently PCP is aware of this but has not changed her medications appropriately. She continues to have high blood sugars. Patient was brought here today because the blood sugar read high on the monitor and family was concerned. Patient has been acting normal otherwise. She does have a history of CVA and hypertension. She is for the most part nonambulatory and she is incontinent which is been ongoing since her stroke. She denies any head injury. No cough or runny nose. No chest pain or shortness of breath. No weakness other than her normal in the lower legs. Has multiple allergies to different antibiotics. Per family she's also been constipated for about 2 days now. She has no belly pain. PFSH Past Medical History Hx Anticoagulant Therapy: Yes (plavix) Cancer: No Congestive Heart Failure: Yes COPD: Yes Cerebrovascular Accident: Yes (2 years ago) Dementia: Yes Diabetes: Yes Patient Takes Glucophage: Yes Diminished Hearing: Yes ([employer]) Genitourinary: No Hypertension: Yes Musculoskeletal: No Neurologic: Yes Psychiatric: No Reproductive: No Respiratory: Yes Immunizations Current: Yes Tetanus Vaccination: Unknown Influenza Vaccination: No Past Surgical History Appendectomy: Yes Cholecystectomy: Yes Hysterectomy: Yes Joint Replacement: Yes (both hips) Other Surgery: Yes (L ANKLE ) Social History Alcohol Use: No Tobacco Use: No (quit 2015) Substance Use: No Allergies-Medications (Allergen,Severity, Reaction): Coded Allergies: amoxicillin (Unverified Allergy, Unknown, 09/07/17) levofloxacin (Unverified Allergy, Unknown, 09/07/17) penicillin G (Unverified Allergy, Unknown, 09/07/17) Reported Meds & Prescriptions Reported Meds & Active Scripts Active Azithromycin 250 Mg Tab 250 Mg PO DIRECTED Take 2 tabs (500 mg) on day 1 then 1 tab daily x 4 days. Magnesium Oxide 400 Mg Tab 400 Mg PO DAILY Protonix (Pantoprazole Sodium) 40 Mg Tab 40 Mg PO DAILY . Prednisone 20 Mg Tab 20 Mg PO DAILY . Oxygen tank (Oxygen) 1 Ea Tank Liter EVIN.CANULA CONTINUOUS Oxygen Concentrator Portable Gaseous 2 L/min via Nasal Cannula Continuous For 99 months Reported Furosemide 40 Mg Tab 40 Mg PO DAILY Glipizide 5 Mg Tab 5 Mg PO BIDAC Take 30 minutes before a meal Donepezil 5 Mg Tab 5 Mg PO HS Plavix (Clopidogrel Bisulfate) 75 Mg Tab 75 Mg PO DAILY Ventolin Hfa 18 GM Inh (Albuterol Sulfate) 90 Mcg/Act Aer 2 Puff INH Q4-6H PRN Review of Systems Except as stated in HPI: all other systems reviewed are Neg Physical Exam Narrative GENERAL: SKIN: Warm and dry. HEAD: Atraumatic. Normocephalic. EYES: Pupils equal and round. No scleral icterus. No injection or drainage. ENT: No nasal bleeding or discharge. Mucous membranes pink and moist. Tongue is midline. No uvula deviation. NECK: Trachea midline. No JVD. CARDIOVASCULAR: Regular rate and rhythm. No murmurs, S3, S4. RESPIRATORY: No accessory muscle use. Clear to auscultation. Breath sounds equal bilaterally. GASTROINTESTINAL: Abdomen soft, non-tender, nondistended. Hepatic and splenic margins not palpable. MUSCULOSKELETAL: Extremities without clubbing, cyanosis, or edema. No obvious deformities. Full range of motion of the upper extremities with no pain. Patient can move the lower legs secondary to weakness which is chronic for her. 2+ pulses bilaterally. NEUROLOGICAL: Awake and alert. No obvious cranial nerve deficits. Motor grossly within normal limits. Five out of 5 muscle strength in the arms and legs. Normal speech. PSYCHIATRIC: Appropriate mood and affect; insight and judgment normal. Data Data Last Documented VS Vital Signs Date Time Temp Pulse Resp B/P (MAP) Pulse Ox O2 Delivery O2 Flow Rate FiO2 09/07/17 14:57 98.2 104 20 197/84 (121) 99 09/07/17 14:55 Room Air Orders Orders Complete Blood Count With Diff (09/07/17 15:09) Comprehensive Metabolic Panel (09/07/17 15:09) B-Type Natriuretic Peptide (09/07/17 15:09) Magnesium (Mg) (09/07/17 15:09) Chest, Single Ap (09/07/17 15:09) Iv Access Insert/Monitor (09/07/17 15:09) Ecg Monitoring (09/07/17 15:09) Oximetry (09/07/17 15:09) Beta Hydroxybutyrate (Acetone) (09/07/17 15:09) Insulin Human Regular Inj (Novolin R Inj (09/07/17 16:45) Electrocardiogram (09/07/17 14:59) Bedside Glucose ISH.CSUGAR (09/07/17 16:55) Azithromycin (Zithromax) (09/07/17 17:15) Ed Discharge Order (09/07/17 17:25) Labs Laboratory Tests Test 09/07/17 15:17 White Blood Count 13.5 TH/MM3 Red Blood Count 5.76 MIL/MM3 Hemoglobin 11.7 GM/DL Hematocrit 40.8 % Mean Corpuscular Volume 70.8 FL Mean Corpuscular Hemoglobin 20.3 PG Mean Corpuscular Hemoglobin Concent 28.7 % Red Cell Distribution Width 27.6 % Platelet Count 362 TH/MM3 Mean Platelet Volume 8.2 FL Neutrophils (%) (Auto) 81.0 % Lymphocytes (%) (Auto) 13.7 % Monocytes (%) (Auto) 4.5 % Eosinophils (%) (Auto) 0.5 % Basophils (%) (Auto) 0.3 % Neutrophils # (Auto) 10.9 TH/MM3 Lymphocytes # (Auto) 1.8 TH/MM3 Monocytes # (Auto) 0.6 TH/MM3 Eosinophils # (Auto) 0.1 TH/MM3 Basophils # (Auto) 0.0 TH/MM3 CBC Comment AUTO DIFF Differential Comment AUTO DIFF CONFIRMED Ovalocytes 1+ Blood Urea Nitrogen 39 MG/DL Creatinine 1.15 MG/DL Random Glucose 520 MG/DL Total Protein 7.8 GM/DL Albumin 3.1 GM/DL Calcium Level 8.6 MG/DL Magnesium Level 1.8 MG/DL Alkaline Phosphatase 137 U/L Aspartate Amino Transf (AST/SGOT) 55 U/L Alanine Aminotransferase (ALT/SGPT) 30 U/L Total Bilirubin 0.5 MG/DL Sodium Level 130 MEQ/L Potassium Level 4.8 MEQ/L Chloride Level 92 MEQ/L Carbon Dioxide Level 29.7 MEQ/L Anion Gap 8 MEQ/L Estimat Glomerular Filtration Rate 45 ML/MIN B-Type Natriuretic Peptide 14 PG/ML B-Hydroxybutyrate 0.17 MMOL/L MDM Medical Decision Making Medical Screen Exam Complete: Yes Emergency Medical Condition: Yes Medical Record Reviewed: Yes Interpretation(s) CBC & BMP Diagram 09/07/17 15:17 Total Protein 7.8, Albumin 3.1 L, Calcium Level 8.6, Magnesium Level 1.8, Alkaline Phosphatase 137 H, Aspartate Amino Transf (AST/SGOT) 55 H, Alanine Aminotransferase (ALT/SGPT) 30, Total Bilirubin 0.5 Last Impressions Chest X-Ray 09/07/17 1509 Signed Impressions: Service Date/Time: Thursday, September 07, 2017 15:26 - CONCLUSION: 1. Cardiomegaly. Left lower lobe atelectasis versus pneumonia. Left effusion Jeff Tinsley MD BNP WNL Differential Diagnosis Hyperglycemia versus diabetes versus weakness versus DKA versus infection versus CHF Narrative Course 87-year-old female that presents to the ED for evaluation of hyperglycemia. Patient was properly examined and was found to have signs and symptoms consistent with what appears to be hyperglycemia. Labs and imaging were ordered. Labs and imaging were essentially unremarkable other than for slight leukocytosis and elevated glucose in the 500s. Patient was given 10 subcutaneous of insulin. Case was discussed in my attending Dr Roy who evaluated the patient with me and recommends discharge of blood sugar comes down. Patient was given insulin and blood sugar the came down. Patient will be treated for possible pneumonia with azithromycin. Patient was told that she needs follow with primary care doctor for further evaluation of the high blood sugar. See ED worsening symptoms. Follow with PCP. Diagnosis Primary Impression: Diabetes mellitus Qualified Codes: E11.9 - Type 2 diabetes mellitus without complications; Z79.4 - halfway (current) use of insulin Additional Impression: Pneumonia Qualified Codes: J18.1 - Lobar pneumonia, unspecified organism Patient Instructions: General Instructions Additional Instructions: Take medication as prescribed. Follow with primary care doctor on Sunday to get her blood sugar under control. See ED if worsening symptoms. Follow with PCP. Med/Other Pt SpecificInfo: Prescription(s) given Scripts Azithromycin (Azithromycin) 250 Mg Tab 250 MG PO DIRECTED for Infection, #6 TAB 0 Refills Take 2 tabs (500 mg) on day 1 then 1 tab daily x 4 days. Prov: Marli Roy DO 09/07/17 Disposition: 01 DISCHARGE HOME Condition: Stable Christian Lopez Sep 07, 2017 17:00
--- NOTE | 2017-09-07 17:10 | PD ---
Physical Exam Narrative I, Dr. Roy, have reviewed the advance practice practitioner's documentation and am in agreement, met with the patient face to face, made the diagnosis, and the medical decision making was done by me. *My assessment and Findings: DKA vs. uncontrolled DM vs. Pneumonia 87yo F with PMH of DM, COPD on home O2 2L NC, here with c/o elevated glucose at home. Pt does say she has increased cough. Labs reviewed, mild leukocytosis at 13.5. Glucose elevated at 520. CO2 29.7. Normal anion gap. BUN/ creatinine mildly elevated at 39/1.15. Pt given NS IVF and is tolerating PO. b -Hydroxybutyrate normal. CXR showed cardiomegaly, left lower lobe atelectasis versus pneumonia. Left effusion. Since pt has increased cough and leukocytosis , will cover with azithromycin due to her allergies. Pt is well appearing and saturating at 96% on 2L NC. Pt given regular insulin 10 units, will repeat blood glucose after. Glucose is trending down at 440. Pt is well appearing and wants to try outpatient treatment first. Strict return precautions given. Data Data Last Documented VS Vital Signs Date Time Temp Pulse Resp B/P (MAP) Pulse Ox O2 Delivery O2 Flow Rate FiO2 09/07/17 19:29 101 19 157/74 (101) 97 Nasal Cannula 2.00 09/07/17 14:57 98.2 Orders Orders Complete Blood Count With Diff (09/07/17 15:09) Comprehensive Metabolic Panel (09/07/17 15:09) B-Type Natriuretic Peptide (09/07/17 15:09) Magnesium (Mg) (09/07/17 15:09) Chest, Single Ap (09/07/17 15:09) Iv Access Insert/Monitor (09/07/17 15:09) Ecg Monitoring (09/07/17 15:09) Oximetry (09/07/17 15:09) Beta Hydroxybutyrate (Acetone) (09/07/17 15:09) Insulin Human Regular Inj (Novolin R Inj (09/07/17 16:45) Electrocardiogram (09/07/17 14:59) Bedside Glucose ISH.CSUGAR (09/07/17 16:55) Azithromycin (Zithromax) (09/07/17 17:15) Ed Discharge Order (09/07/17 17:25) Labs Laboratory Tests Test 09/07/17 15:17 White Blood Count 13.5 TH/MM3 Red Blood Count 5.76 MIL/MM3 Hemoglobin 11.7 GM/DL Hematocrit 40.8 % Mean Corpuscular Volume 70.8 FL Mean Corpuscular Hemoglobin 20.3 PG Mean Corpuscular Hemoglobin Concent 28.7 % Red Cell Distribution Width 27.6 % Platelet Count 362 TH/MM3 Mean Platelet Volume 8.2 FL Neutrophils (%) (Auto) 81.0 % Lymphocytes (%) (Auto) 13.7 % Monocytes (%) (Auto) 4.5 % Eosinophils (%) (Auto) 0.5 % Basophils (%) (Auto) 0.3 % Neutrophils # (Auto) 10.9 TH/MM3 Lymphocytes # (Auto) 1.8 TH/MM3 Monocytes # (Auto) 0.6 TH/MM3 Eosinophils # (Auto) 0.1 TH/MM3 Basophils # (Auto) 0.0 TH/MM3 CBC Comment AUTO DIFF Differential Comment AUTO DIFF CONFIRMED Ovalocytes 1+ Blood Urea Nitrogen 39 MG/DL Creatinine 1.15 MG/DL Random Glucose 520 MG/DL Total Protein 7.8 GM/DL Albumin 3.1 GM/DL Calcium Level 8.6 MG/DL Magnesium Level 1.8 MG/DL Alkaline Phosphatase 137 U/L Aspartate Amino Transf (AST/SGOT) 55 U/L Alanine Aminotransferase (ALT/SGPT) 30 U/L Total Bilirubin 0.5 MG/DL Sodium Level 130 MEQ/L Potassium Level 4.8 MEQ/L Chloride Level 92 MEQ/L Carbon Dioxide Level 29.7 MEQ/L Anion Gap 8 MEQ/L Estimat Glomerular Filtration Rate 45 ML/MIN B-Type Natriuretic Peptide 14 PG/ML B-Hydroxybutyrate 0.17 MMOL/L [facility] Supervised Visit with RADHA: Yes Interpretation(s) EKG: NSR 85bpm. LAD. RBBB unchanged from prior. Diagnosis Primary Impression: Diabetes mellitus Qualified Codes: E11.9 - Type 2 diabetes mellitus without complications; Z79.4 - [facility] (current) use of insulin Scripts Azithromycin (Azithromycin) 250 Mg Tab 250 MG PO DIRECTED for Infection, #6 TAB 0 Refills Take 2 tabs (500 mg) on day 1 then 1 tab daily x 4 days. Prov: Marli Roy DO 09/07/17 Marli Roy DO Sep 07, 2017 17:10
[2017-09-07] MEDS ORDERED: AZIT250T3 PO (17:14)
[2017-09-07] MEDS ORDERED: AZITHROMYCIN 250 MG TAB PO ONE (17:15)
[2017-09-07 18:42] VITALS: BP 143/90; PULSE 103; RESP 20; O2SAT 95
[2017-09-07 19:29] VITALS: BP 157/74; PULSE 101; RESP 19; O2SAT 97
--- NOTE | 2017-09-08 13:33 | EKG ---
Date Performed: 09/07/2017 Time Performed: 14:59:37 PTAGE: 87 years EKG: Rhythm appears to be an ectopic atrial rhythm with occassional junctional premature beats R ight bundle branch block Left axis deviation PREVIOUS TRACING : 08/13/2017 07.12 Since previous tracing, heart rate is somewhat more r apid. Otherwise, no significant change. DOCTOR: Dwight Kirby Interpretating Date/Time 09/08/2017 13:32:21
== END 2017-09-07 20:28 | disposition home or self-care (01) ==
LOC: NEPC 14:29
DX: E11.9 Type 2 diabetes mellitus without complications (principal); I45.10 Unspecified right bundle-branch block; J44.0 Chronic obstructive pulmonary disease with (acute) lower respiratory infection; J18.1 Lobar pneumonia, unspecified organism; I11.0 Hypertensive heart disease with heart failure; I50.9 Heart failure, unspecified; Z79.4 Long term (current) use of insulin; Z87.891 Personal history of nicotine dependence
CPT/HCPCS: 71045; 80053; 82010; 83735; 83880; 85025; 93005; 96372; 99285; J1815